=== PATIENT | female | born 1970 | race Caucasian/White ===

== ENCOUNTER 2018-08-27 17:18 | Inpatient (IN) | payer BC, OTHER ==
[~2018-08-27] VITALS: Ht 165.1 cm; Wt 83.5 kg
[2018-08-27] MEDS ORDERED: Morphine Sulfate 4mg/ml Inj (IV/IM USE ONLY) IVP ONE (17:45)
[2018-08-27 18:51] LABS: APPEARANCE,URINE CLEAR; BILIRUBIN, URINE NEGATIVE (NEGATIVE); COLOR,URINE PALE YELLOW; GLUCOSE, URINE (UA) NEGATIVE (NEGATIVE); HEMATOCRIT 35.5 % (37.0-47.0); HEMOGLOBIN 12.6 G/DL (12.0-16.0); KETONES,URINE NEGATIVE (NEGATIVE); LEUKOCYTE ESTERASE ,URINE NEGATIVE (NEGATIVE); MEAN CORPUSCULAR VOLUME 91 FL (80-99); NITRITE,URINE NEGATIVE (NEGATIVE); PH,URINE 5 (4.5-8.0); PLATELET COUNT 224 K/UL (150-450); PROTEIN,URINE NEGATIVE (NEGATIVE); RED CELL DISTRIBUTION WIDTH 10.4 % (11.6-14.8); UROBILINOGEN,URINE NORMAL MG/DL (0.0-1.0); WHITE BLOOD COUNT 3.5 K/UL (4.8-10.8)
[2018-08-27 18:56] VITALS: BP 145/95
[2018-08-27 19:02] LABS: ANION GAP 10 mmol/L (5-15); BLOOD UREA NITROGEN 13 mg/dL (7-18); CALCIUM 9.2 MG/DL (8.5-10.1); CARBON DIOXIDE 29 MMOL/L (21-32); CHLORIDE 102 MMOL/L (98-107); CREATININE 1.2 MG/DL (0.55-1.30); POTASSIUM 2.9 MMOL/L (3.5-5.1); SODIUM 141 MMOL/L (136-145)
[2018-08-27 19:18] LABS: ALANINE AMINOTRANSFERASE 52 U/L (12-78); ALBUMIN 4.1 G/DL (3.4-5.0); ALBUMIN/GLOBULIN RATIO 1.1 (1.0-2.7); ALKALINE PHOSPHATASE 83 U/L (46-116); ASPARTATE AMINO TRANSFERASE 33 U/L (15-37); BILIRUBIN,TOTAL 0.6 MG/DL (0.2-1.0)
[2018-08-27 19:30] VITALS: BP 145/95
[2018-08-27 20:00] VITALS: BP 135/85
[2018-08-27] MEDS ORDERED: METHOCARBAMOL500 MG ORAL (20:41)
[2018-08-27] MEDS ORDERED: ZYRTEC10 M3 ORAL (20:41)
[2018-08-27] MEDS ORDERED: TOPAMAX25 M1 ORAL (20:41)
[2018-08-27] MEDS ORDERED: BENADRYL25 M3 PO (20:41)
[2018-08-27] MEDS ORDERED: ZOFRAN4 M1 ORAL (20:41)
[2018-08-27] MEDS ORDERED: PRILOSEC OTC20 MG ORAL (20:41)
[2018-08-27] MEDS ORDERED: BUTRANS1 EAC1 TD (20:41)
--- NOTE | 2018-08-27 20:45 | Emergency Room Report ---
History of Present Illness General Chief Complaint: Abdominal Pain Source: Patient Present Illness HPI 48-year-old female patient presents ER complaining of abdominal pain for the past few days. Patient reports that she was sent to the ER by her physician, Dr. Hendrix. .Ruma called ahead to the ER to alert us that patient was being sent in for partial SBO. Patient complaining of nausea and abdominal pain at this time. Has not taken any medications for relief of symptoms. Reports had surgery to remove a portion of colon in 2008, states has a "internal ostomy " that she uses a catheter to evacuate her bowels several times a day. Denies fever, chest pain, shortness of breath. Allergies: Coded Allergies: SULFA (SULFONAMIDE ANTIBIOTICS) (Verified Allergy, Mild, HIVES, 07/30/10) Patient History Past Medical History: see triage record Now: No Reviewed Nursing Documentation: PMH: Agreed; PSxH: Agreed Review of Systems All Other Systems: negative except mentioned in HPI Physical Exam Vital Signs Date Time Temp Pulse Resp B/P (MAP) Pulse Ox O2 Delivery O2 Flow Rate FiO2 08/27/18 17:26 98.6 72 20 149/99 100 Room Air Sp02 EP Interpretation: reviewed, normal General Appearance: well appearing, no apparent distress, alert, GCS 15, non- toxic Head: normocephalic, atraumatic Eyes: bilateral eye normal inspection, bilateral eye PERRL ENT: hearing grossly normal, normal pharynx, no angioedema, normal voice, uvula midline, moist mucus membranes Neck: full range of motion Respiratory: lungs clear, normal breath sounds, no rhonchi, no respiratory distress, no accessory muscle use, no wheezing, speaking full sentences Cardiovascular #1: regular rate, rhythm, no edema Gastrointestinal: soft, no mass, non-distended, no rebound, guarding, tenderness - LLQ, LUQ Genitourinary: no CVA tenderness Musculoskeletal: back normal, digits/nails normal, gait/station normal, normal range of motion, non-tender Neurologic: alert, oriented x3, responsive, motor strength/tone normal, sensory intact Psychiatric: mood/affect normal Skin: no rash Medical Decision Making PA Attestation Dr. Tyson is my supervising Physician whom patient management has been discussed with. Diagnostic Impression: Primary Impression: Partial small bowel obstruction Additional Impression: Hypokalemia ER Course Pt. presents to the ED c/o abdominal pain and nausea. Ddx considered but are not limited to SBO, diverticulitis, stoma complications. Begin abdominal pain workup. Provided patient with pain medication. Vital signs: are WNL, pt. is afebrile ORDERS: CBC, CMP, Lipase, UA, PT/PTT/INR, Zofran, and medication. ER COURSE: Spoke with Dr. Cevallos on the phone, patients physician that sent her to the ER. Wants patient admitted to him, requesting labs be ordered, states does not need CT ordered, CT abdomen done previously few days ago showing partial small bowel obstruction. CBC and CMP shows no elevation in WBCs or LFTs, potassium decreased to 2.9, alerted by nurse of potassium levels, patient already transferred upstairs at that time. PT/PTT/INR WNL Lipase not elevated UA negative Discuss results with patient Provided patient with morphine for pain. Discuss patient with Dr. Tyson, states she had been informed by him that patient was being sent to the ER. Patient admitted to Dr. Cevallos for partial SBO. - Please note that this Emergency Department Report was dictated using [employer] grain dryer technology software, occasionally this can lead to erroneous entry secondary to interpretation by the dictation equipment. Labs Test 08/27/18 18:36 White Blood Count 3.5 K/UL (4.8-10.8) Red Blood Count 3.90 M/UL (4.20-5.40) Hemoglobin 12.6 G/DL (12.0-16.0) Hematocrit 35.5 % (37.0-47.0) Mean Corpuscular Volume 91 FL (80-99) Mean Corpuscular Hemoglobin 32.2 PG (27.0-31.0) Mean Corpuscular Hemoglobin Concent 35.4 G/DL (32.0-36.0) Red Cell Distribution Width 10.4 % (11.6-14.8) Platelet Count 224 K/UL (150-450) Mean Platelet Volume 7.3 FL (6.5-10.1) Neutrophils (%) (Auto) % (45.0-75.0) Lymphocytes (%) (Auto) % (20.0-45.0) Monocytes (%) (Auto) % (1.0-10.0) Eosinophils (%) (Auto) % (0.0-3.0) Basophils (%) (Auto) % (0.0-2.0) Differential Total Cells Counted 100 Neutrophils % (Manual) 31 % (45-75) Lymphocytes % (Manual) 59 % (20-45) Monocytes % (Manual) 6 % (1-10) Eosinophils % (Manual) 2 % (0-3) Basophils % (Manual) 1 % (0-2) Band Neutrophils 1 % (0-8) Platelet Estimate Adequate Platelet Morphology Normal Red Blood Cell Morphology Normal Prothrombin Time 10.6 SEC (9.30-11.50) Prothromb Time International Ratio 1.0 (0.9-1.1) Activated Partial Thromboplast Time 25 SEC (23-33) Urine Color Pale yellow Urine Appearance Clear Urine pH 5 (4.5-8.0) Urine Specific [place] 1.010 (1.005-1.035) Urine Protein Negative (NEGATIVE) Urine Glucose (UA) Negative (NEGATIVE) Urine Ketones Negative (NEGATIVE) Urine Blood Negative (NEGATIVE) Urine Nitrite Negative (NEGATIVE) Urine Bilirubin Negative (NEGATIVE) Urine Urobilinogen Normal MG/DL (0.0-1.0) Urine Leukocyte Esterase Negative (NEGATIVE) Sodium Level 141 MMOL/L (136-145) Potassium Level 2.9 MMOL/L (3.5-5.1) Chloride Level 102 MMOL/L (98-107) Carbon Dioxide Level 29 MMOL/L (21-32) Anion Gap 10 mmol/L (5-15) Blood Urea Nitrogen 13 mg/dL (7-18) Creatinine 1.2 MG/DL (0.55-1.30) Estimat Glomerular Filtration Rate 47.8 mL/min (>60) Glucose Level 103 MG/DL (74-106) Calcium Level 9.2 MG/DL (8.5-10.1) Total Bilirubin 0.6 MG/DL (0.2-1.0) Aspartate Amino Transf (AST/SGOT) 33 U/L (15-37) Alanine Aminotransferase (ALT/SGPT) 52 U/L (12-78) Alkaline Phosphatase 83 U/L (46-116) Total Protein 7.8 G/DL (6.4-8.2) Albumin 4.1 G/DL (3.4-5.0) Globulin 3.7 g/dL Albumin/Globulin Ratio 1.1 (1.0-2.7) Lipase 89 U/L (73-393) Last Vital Signs Date Time Temp Pulse Resp B/P (MAP) Pulse Ox O2 Delivery O2 Flow Rate FiO2 08/27/18 18:56 70 18 Room Air 08/27/18 18:56 98.7 145/95 100 Disposition: ADMITTED INPATIENT Condition: Serious Referrals: NON PHYSICIAN (PCP) Dex Kat Aug 27, 2018 20:45
[2018-08-27] MEDS ORDERED: LORazepam 0.5mg tab SL PRN (22:15)
[2018-08-27] MEDS: Methocarbamol 500mg tab ORAL SCH (22:57)
[2018-08-27] MEDS: D5 1/2NS w/KCl 20mEq 1,000 ML IV SCH (22:57)
[2018-08-27] MEDS ORDERED: Topiramate 25mg tab ORAL SCH (23:00)
[2018-08-27] MEDS: Topiramate 25mg tab ORAL SCH (23:39)
[2018-08-28] VITALS: BP 143/93
[2018-08-28] MEDS: Morphine Sulfate 2mg/ml Inj IVP PRN ×4 (02:16→19:49)
[2018-08-28 04:30] VITALS: BP 112/77
[2018-08-28 05:49] LABS: HEMOGLOBIN 12.4 G/DL (12.0-16.0); MEAN CORPUSCULAR VOLUME 90 FL (80-99); PLATELET COUNT 180 K/UL (150-450); RED BLOOD COUNT 3.79 M/UL (4.20-5.40); RED CELL DISTRIBUTION WIDTH 10.6 % (11.6-14.8); WHITE BLOOD COUNT 3.3 K/UL (4.8-10.8)
[2018-08-28] MEDS: D5 1/2NS w/KCl 20mEq 1,000 ML IV SCH (06:07)
[2018-08-28 06:12] LABS: ALANINE AMINOTRANSFERASE 50 U/L (12-78); ALBUMIN 3.5 G/DL (3.4-5.0); ALBUMIN/GLOBULIN RATIO 0.9 (1.0-2.7); ALKALINE PHOSPHATASE 73 U/L (46-116); ANION GAP 6 mmol/L (5-15); ASPARTATE AMINO TRANSFERASE 32 U/L (15-37); BILIRUBIN,TOTAL 0.5 MG/DL (0.2-1.0); BLOOD UREA NITROGEN 12 mg/dL (7-18); CALCIUM 8.8 MG/DL (8.5-10.1); CARBON DIOXIDE 28 MMOL/L (21-32); CHLORIDE 107 MMOL/L (98-107); CREATININE 1.1 MG/DL (0.55-1.30); SODIUM 141 MMOL/L (136-145)
[2018-08-28 08:00] VITALS: BP 109/77
--- NOTE | 2018-08-28 09:31 | General Progress Note ---
Progress Note Progress Note H&P dictated. Patient with history of total colectomy for colonic inertia with Ann Continent Ileostomy since 2006, and prior episode SBO requiring surgery. Now with persistent abdominal pain and bloating, increased by eating, with nausea and decreased output from Ann pouch. CT scan at home ([place] ) reviewed here with Radiology - partial small bowel obstruction. Also having increasing difficulty inserting her catheter into the Ann Pouch to evacuate stool - requires a lot of manipulation Patient admitted from ED - to be npo, IV fluids, prepare for surgery AVSS Abdomen mildly distended, soft, stoma low in RLQ - small but not stenotic I was able to insert 28Foley fairly readily into the pouch Labs: WBC 3300 (she states this is chronic) Segs 31 Lymph 59 Hgb 12.4 Platelets 180,000 Na 141 K 2.9 BUN12 Cr 1.1 Albumin 3.5 Patient using Butran 15mcg/hr patch for back pain (hx of RA and osteoarthritis with back fusion and other procedures Imp: Partial SBO - likely due to adhesions (see outside CT on PACS here and reviewed with radiology) Malfunctioning Ann Continent Ileostomy with difficulty intubating Chronic pain syndrome from spine disease S/P proctocolectomy S/P MICHAEL and BSO Plan: NPO PICC line and TPN Continuous drainage of Ann Pouch Pouch endoscopy surgery f/u labs after fully hydrated Linwood Hendrix MD Aug 28, 2018 09:31
[2018-08-28] MEDS: Topiramate 25mg tab ORAL SCH ×2 (09:32→20:03)
[2018-08-28] MEDS: Methocarbamol 500mg tab ORAL SCH ×2 (09:33→18:16)
[2018-08-28] MEDS: Pantoprazole Inj IVP SCH (09:36)
[2018-08-28] MEDS: D5 1/4NS w/KCl 20mEq 1,000 ML IV SCH ×2 (10:00→18:16)
[2018-08-28] MEDS ORDERED: BUPRENORPHINE TRANSDERMAL ORAL SCH (10:30)
[2018-08-28 12:00] VITALS: BP 129/85
--- NOTE | 2018-08-28 14:16 | Pre-op HX & Phy Repo 2 SIG ---
DATE OF ADMISSION: 08/27/2018 HISTORY OF PRESENT ILLNESS: The patient is a 48-year-old female in overall stable health, who presents with a persistent partial small bowel obstruction causing multiple abdominal and GI symptoms and significant weight loss as well as a malfunctioning Ann continent intestinal reservoir with difficulty intubating her pouch to evacuate stool and gas. The patient has an original underlying diagnosis of colonic inertia and underwent surgery in [place] in 2005 for abdominal colectomy with ileorectostomy. One month later the anastomosis was resected because of stricture and a low anterior anastomosis was performed with diverting loop ileostomy. She had recurrent stricture of the new anastomosis and underwent surgery in [place] by vt in 2006 to take down the failed prior procedure and create a Ann continent ileostomy. She subsequently underwent total abdominal hysterectomy with bilateral salpingo-oophorectomy and abdomino-perineal proctectomy in 2007 and had surgery in 2009 to revise the access segment and stoma of the Ann continent ileostomy. The patient required laparotomy with lysis of adhesions for obstruction in 2006. In 2016, the patient had symptoms of bloating, early satiety, grumbling that was evaluated and gradually resolved. In the past several months, she states she has lost 20 pounds because whenever she eats she has abdominal pain, feels very full, and has severe nausea without emesis. She must manipulate her catheter to intubate her continent ileostomy pouch and even when the catheter gets into the pouch, it does not empty well without her straining a great deal. She does not have symptoms of pouchitis. The patient's usual weight is between 155 and 160 pounds. Currently, her weight is [address] scan near her home, which was reviewed by me with the radiologist revealing findings consistent with partial small bowel obstruction in the mid small bowel well proximal to the continent ileostomy pouch. The patient presented to the emergency room with the above complaints and obviously required admission to become NPO at this time. PAST MEDICAL HISTORY/MEDICATIONS: Robaxin, Topamax, omeprazole, Butrans 15 mcg/hour patch change once weekly for chronic pain syndrome due to spine disease. ALLERGIES TO MEDICATIONS: Sulfa. She has had headaches from Toradol at times OPERATIONS: In addition to the above, tonsillectomy in November 2009, section x4, repair of ventral incisional hernia in 2005 and 2009, benign breast lumpectomy, ORIF right ankle fracture, lumbar diskectomies and spinal fusion 2013 with removal of hardware in 2015. REVIEW OF SYSTEMS: Rheumatoid arthritis and degenerative osteoarthritis with the past history of six bulging disks in her spine. PHYSICAL EXAMINATION: VITAL SIGNS: The patient is 5 feet 5 inches, approximately 138 pounds. Vital signs are within normal limits. HEENT: Within normal limits. LUNGS: Clear. HEART: Regular rhythm. BREASTS: Without masses. ABDOMEN: Mildly distended, but soft. There is a long midline scar. The stoma of the Ann continent ileostomy is small, but not stenotic and is low in the right lower quadrant. There is no evidence of recurrent incisional or any parastomal hernia. PELVIC: Status post hysterectomy. RECTAL: Status post proctectomy. EXTREMITIES: Without edema. Pulses 2+ femoral to pedal bilaterally. NEUROLOGIC: Physiologic. LABORATORY DATA: The patient presents with white blood cell count of 3300 with 31 segs and 59 lymphocytes, hemoglobin 12.4 before adequate hydration, platelet count 180,000. She states she chronically has low white blood cell counts, but was not sure of the differential. Sodium 141, potassium 2.9, albumin 3.5 again prior to adequate hydration. IMPRESSION: 1. Persistent partial small bowel obstruction. 2. Malfunctioning Ann continent intestinal reservoir. 3. History of colonic inertia. 4. History of rheumatoid arthritis and degenerative osteoarthritis with multiple bulging disks, status post spinal fusion 2013. 5. STATUS POST MULTIPLE ABDOMINAL OPERATIONS: 5.1. section x4. 5.2. Total abdominal colectomy with ileorectostomy June 2006. 5.3. Low anterior resection of anastomotic stricture with re-anastomosis and diverting loop ileostomy July 2006. 5.4. Repair of ventral incisional hernia in September 2006, (these operations were done in [place]). 5.5. Ann continent intestinal reservoir with takedown of prior loop ileostomy and small bowel resection January 2007. 5.6. Extensive lysis of adhesions for obstruction and bilateral ovarian cystectomy July 2007. 5.7. Total abdominal hysterectomy and bilateral salpingo-oophorectomy and abdomino-perineal proctectomy December 2007. 5.8. Laparotomy with revision of Ann continent intestinal reservoir access segment and stoma and repair of recurrent incisional hernia July 2010 PLAN: The patient will be admitted and be maintained NPO except for po medications with sips of water as tolerated. If emesis develops, she will require nasogastric tube to suction. The patient will have followup laboratory studies to assess baseline values when she is adequately hydrated. A dual lumen PICC line will be placed and she will be started on TPN. A Ann pouch endoscopy will be performed and then decision made regarding proceeding with surgery to relieve the chronic partial obstruction and to revise the Ann pouch as indicated by the endoscopy findings. The patient also states that she is having difficulty voiding for quite some time and she may need to undergo cystogram. A strict intake and output will be maintained. I inserted a 28-Latvian Will catheter into the patient's pouch with some manipulation, I confirmed placement with irrigation and secured it to the skin with tape, placed a dressing over the stoma and connected to gravity drainage bag. This catheter will be flushed by the nursing staff every three hours to maintain patency and strict intake and output will be maintained with vital signs every four hours. The Butrans patch will be continued for her chronic pain syndrome. Linwood Hendrix M.D. DR: LAKE JOB#: [id number] CC: RENE
[2018-08-28] MEDS ORDERED: LORazepam 1mg tab SL SCH (15:15)
[2018-08-28 16:00] VITALS: BP 118/79
[2018-08-28] MEDS ORDERED: LORazepam 1mg tab SL PRN (19:15)
[2018-08-28 20:00] VITALS: BP 117/81
[2018-08-29] VITALS (7 sets, daily range): BP systolic 104–140; BP diastolic 63–88
[2018-08-29] MEDS: Morphine Sulfate 2mg/ml Inj IVP PRN ×4 (00:16→20:00)
[2018-08-29] MEDS: D5 1/4NS w/KCl 20mEq 1,000 ML IV SCH ×3 (02:05→17:49)
[2018-08-29 05:54] LABS: HEMATOCRIT 36.5 % (37.0-47.0); HEMOGLOBIN 12.8 G/DL (12.0-16.0); MEAN CORPUSCULAR VOLUME 90 FL (80-99); PLATELET COUNT 167 K/UL (150-450); RED BLOOD COUNT 4.04 M/UL (4.20-5.40); RED CELL DISTRIBUTION WIDTH 10.6 % (11.6-14.8); WHITE BLOOD COUNT 2.3 K/UL (4.8-10.8)
[2018-08-29 06:35] LABS: ALANINE AMINOTRANSFERASE 50 U/L (12-78); ALBUMIN 3.6 G/DL (3.4-5.0); ALBUMIN/GLOBULIN RATIO 0.9 (1.0-2.7); ALKALINE PHOSPHATASE 78 U/L (46-116); ANION GAP 10 mmol/L (5-15); ASPARTATE AMINO TRANSFERASE 24 U/L (15-37); BILIRUBIN,TOTAL 0.8 MG/DL (0.2-1.0); BLOOD UREA NITROGEN 5 mg/dL (7-18); CALCIUM 9.2 MG/DL (8.5-10.1); CARBON DIOXIDE 24 MMOL/L (21-32); CHLORIDE 106 MMOL/L (98-107); CREATININE 1.2 MG/DL (0.55-1.30); FERRITIN 115 NG/ML (8-388); SODIUM 140 MMOL/L (136-145)
[2018-08-29 06:49] LABS: % IRON SATURATION 7 % (15-50); IRON 25 ug/dL (50-175); TOTAL IRON BINDING CAPACITY 340 ug/dL (250-450)
[2018-08-29] MEDS ORDERED: [UNRECOGNIZED DRUG - OTHER] MISC SCH (09:00)
[2018-08-29] MEDS: Topiramate 25mg tab ORAL SCH ×2 (10:02→20:00)
[2018-08-29] MEDS: Methocarbamol 500mg tab ORAL SCH ×2 (10:02→17:49)
[2018-08-29] MEDS: Pantoprazole Inj IVP SCH (10:02)
--- NOTE | 2018-08-29 10:26 | General Progress Note ---
Progress Note Progress Note AVSS Still having intermittent sharp and cramping abdominal pain despite npo and indwelling catheter to [place] continent ileostomy patch. Abdomen soft with mild upper abdominal distention, non-tender Urine 2350 BCIR ileo 340 WBC down 2300 Hgb 12.8 Platelets 167,000 K 4.0 BUN 5 Cr 1.2 Albumin 3.6 Iron 25 Ferritin 115 B12 and folate - wnl Imp. partial SBO severe iron deficiency Plan; NPO Venofer f/u labs re low WBC (chronic issue for patient) for AM: Gastrograffin continent ileostomy pouchogram and retrograde small bowel series [place] Pouch endoscopy insertion PIC line - prepare for surgery laparotomy Linwood Hendrix MD Aug 29, 2018 10:26
[2018-08-29] MEDS: Iron Sucrose 100 MG in NS 55 ML IV SCH (20:00)
[2018-08-30] VITALS: BP 144/104
[2018-08-30] MEDS: Morphine Sulfate 2mg/ml Inj IVP PRN ×4 (00:28→19:31)
[2018-08-30] MEDS: D5 1/4NS w/KCl 20mEq 1,000 ML IV SCH ×3 (00:28→17:58)
[2018-08-30 04:00] VITALS: BP 112/72
[2018-08-30 05:53] LABS: BASOPHILS % (AUTO) 0.9 % (0.0-2.0); EOSINOPHILS % (AUTO) 2.3 % (0.0-3.0); HEMOGLOBIN 11.4 G/DL (12.0-16.0); LYMPHOCYTES % (AUTO) 30.9 % (20.0-45.0); MEAN CORPUSCULAR VOLUME 91 FL (80-99); MONOCYTES % (AUTO) 12.2 % (1.0-10.0); NEUTROPHILS % (AUTO) 53.6 % (45.0-75.0); PLATELET COUNT 152 K/UL (150-450); RED BLOOD COUNT 3.62 M/UL (4.20-5.40); RED CELL DISTRIBUTION WIDTH 10.5 % (11.6-14.8); WHITE BLOOD COUNT 3.6 K/UL (4.8-10.8)
[2018-08-30 05:57] LABS: ANION GAP 11 mmol/L (5-15); BLOOD UREA NITROGEN 4 mg/dL (7-18); CALCIUM 9.3 MG/DL (8.5-10.1); CARBON DIOXIDE 23 MMOL/L (21-32); CHLORIDE 110 MMOL/L (98-107); CREATININE 1.1 MG/DL (0.55-1.30); POTASSIUM 3.4 MMOL/L (3.5-5.1); SODIUM 144 MMOL/L (136-145)
[2018-08-30 08:00] VITALS: BP 133/82
[2018-08-30] MEDS: Pantoprazole Inj IVP SCH (08:21)
[2018-08-30] MEDS: Topiramate 25mg tab ORAL SCH ×2 (08:21→20:25)
[2018-08-30] MEDS: Methocarbamol 500mg tab ORAL SCH ×2 (08:22→17:57)
[2018-08-30] MEDS ORDERED: Heparin 2000 units/Ns 1000ml INJ PRN (08:30)
[2018-08-30] MEDS ORDERED: Lidocaine 1% Plain 30 ml INJ PRN (08:30)
--- NOTE | 2018-08-30 08:59 | General Progress Note ---
Progress Note Progress Note AVSS Persistent abd. pain Abdomen soft, non-tender Urine 2550 BCIR ileo 205 WBC up 3600 other labs ok Imp. Partial SBO Malfunctioning Ann Pouch with difficulty with intubation Plan: Gastrograffin pouchogram with retrograde SBS PIC line Ann Pouch endoscopy Start TPN Surgery tomorrow Linwood Hendrix MD Aug 30, 2018 08:59
--- NOTE | 2018-08-30 09:22 | Pre-Procedure Note/Attestation ---
Pre-Procedure Note/Attestation Complete Prior to Procedure Planned Procedure: not applicable Procedure Narrative: Ann Pouch endoscopy Indications for Procedure Pre-Operative Diagnosis: malfunctioning Ann Pouch continent ileostomy Attestation I attest that I discussed the nature of the procedure; its benefits; risks and complications; and alternatives (and the risks and benefits of such alternatives ), prior to the procedure, with the patient (or the patient's legal access representative). I attest that, if there was a reasonable possibility of needing a blood transfusion, the patient (or the patient's legal access representative) was given the [facility] standardized written summary, pursuant to the [place] Nicole Blood Safety Act ([place] Health and Safety Code # 1645, as amended). I attest that I re-evaluated the patient just prior to the surgery and that there has been no change in the patient's H&P, except as documented below:none Linwood Hendrix MD Aug 30, 2018 09:22
--- NOTE | 2018-08-30 10:33 | Brief Operative Note ---
Immediate Post Operative Note Operative Note Pre-op Diagnosis: bowel obstruction Procedure: PICC Post-op Diagnosis: same as pre-op Surgeon: Nohelia MARTELL Anesthesia: local Specimen: none Complications: none Condition: stable Fluids: none Implant(s) used?: No Jose Armando Martell MD Aug 30, 2018 10:33
--- NOTE | 2018-08-30 10:33 | Pre-Procedure Note/Attestation ---
Pre-Procedure Note/Attestation Complete Prior to Procedure Planned Procedure: not applicable Procedure Narrative: PICC Indications for Procedure Pre-Operative Diagnosis: bowel obstruction Attestation I attest that I discussed the nature of the procedure; its benefits; risks and complications; and alternatives (and the risks and benefits of such alternatives ), prior to the procedure, with the patient (or the patient's legal accounting representative). I attest that, if there was a reasonable possibility of needing a blood transfusion, the patient (or the patient's legal accounting representative) was given the [facility] standardized written summary, pursuant to the Tiago Nicole Blood Safety Act ([place] Health and Safety Code # 1645, as amended). I attest that I re-evaluated the patient just prior to the surgery and that there has been no change in the patient's H&P, except as documented below: Jose Armando Martell MD Aug 30, 2018 10:33
--- NOTE | 2018-08-30 11:42 | Diagnostic Imaging Report ---
Indications: Needs long-term IV access Technique: Ultrasound confirms patent compressible left basilic vein. Total sterile technique, including sterile probe cover and sterile gel, hat, mask, sterile gown, large sterile drape, and preparation with 2% chlorhexidine utilized. Local anesthesia with 1% lidocaine. Under real-time ultrasound guidance, puncture basilic vein using 21-gauge needle, documented and archived, passage 0.018 guidewire under direct fluoroscopy, which was used to determine appropriate catheter length, exchange for 5 [place] peel-away sheath. 5 [place] Bard dual-lumen power PICC cut to 46 cm. It was inserted through the peel-away sheath. Peel-away sheath and guidewire removed. Catheter fixed to the skin. Both catheter ports aspirated and flushed. Patient tolerated procedure well, without immediate complication. Digital radiograph documents satisfactory catheter tip position, at the cavoatrial junction. Total fluoroscopy time 0.3 minutes. Total dose area product 6.2 dGycm2 Total number of images: 1 Impression: Successful placement of left arm PICC under sonographic and fluoroscopic guidance, as described above.
[2018-08-30 12:00] VITALS: BP 129/90
--- NOTE | 2018-08-30 13:59 | Brief Operative Note ---
Immediate Post Operative Note Operative Note Pre-op Diagnosis: malfunctioning Ann Pouch continent ileostomy Procedure: Ann continent ileostomy pouch endoscopy Post-op Diagnosis: redundant angulated access segment. Normal pouch and valve Post-op Diagnosis: same as pre-op Findings: consistent w/pre-op dx studies Surgeon: thai Anesthesiologist: jenise Anesthesia: other - none Specimen: none Complications: none Condition: stable Fluids: none Estimated Blood Loss: none Drains: other - 26 Will to BCIR Implant(s) used?: No Linwood Hendrix MD Aug 30, 2018 13:59
--- NOTE | 2018-08-30 15:49 | Diagnostic Imaging Report ---
Indication: Abdominal pain Technique: Via gravity, water-soluble contrast instilled into continent ileostomy pouch using pre-existing Will catheter. Serial spot images were obtained. Subsequent overhead images likewise obtained. Total fluoroscopy time 4.3 minutes. Total dose area product 366 dGycm2 Number of images: 34 Comparison: none Findings: Contrast fills continent ileostomy reservoir, appearance of which is unremarkable. There is free reflux of contrast into the small bowel, and contrast in fact refluxes all the way into the stomach. The most proximal jejunal loops are mildly dilated. However, no resistance to retrograde propagation of contrast is demonstrated. Delayed images demonstrate partial emptying of the small bowel, with normal caliber of the proximal jejunum. It also demonstrates complete emptying of the pouch. Very delayed images taken one half hours after completion of the main portion of the exam demonstrate nearly complete evacuation of the small bowel with only a small amount of residual contrast within the pouch in the distal small bowel. The delayed images do demonstrate a single very mildly dilated gas-filled jejunal loop in the left upper pelvis Impression: Nonspecific mild distention of the proximal jejunum, with out evidence of mechanical obstruction Unremarkable appearing continent ileostomy, as described Images previously reviewed in person with Dr. Hendrix.
[2018-08-30 16:00] VITALS: BP 132/94
[2018-08-30] MEDS ORDERED: BUPRENORPHINE TRANSDERMAL ORAL SCH (16:30)
[2018-08-30] MEDS: Potassium Chloride 40 MEQ in D5 1/4NS 1000ml 1,000 ML IV SCH (19:56)
[2018-08-30] MEDS: FAT EMULSION 20% IV SCH (19:57)
[2018-08-30] MEDS: TPN IV SCH (19:57)
[2018-08-30 20:00] VITALS: BP 126/94
[2018-08-30] MEDS ORDERED: Dextrose 10% 1,000 ML IV PRN (20:00)
[2018-08-30] MEDS: Dyna-Hex 2% Top Sol 2oz TOPIC SCH (20:11)
[2018-08-30] MEDS: Iron Sucrose 100 MG in NS 55 ML IV SCH (20:24)
[2018-08-30] MEDS ORDERED: Fat Emulsion Iv 20% 250 ML IV SCH (21:00)
--- NOTE | 2018-08-30 21:16 | Procedure Note ---
DATE OF PROCEDURE: 08/30/2018 ENDOSCOPY PROCEDURE REPORT ENDOSCOPIST: Linwood Hendrix M.D. ANESTHESIA: None. SEDATION: None. PRE-ENDOSCOPY DIAGNOSES: 1. Malfunctioning Ann continent ileostomy with difficulty with intubation. 2. History of proctocolectomy and continent ileostomy. POST-ENDOSCOPY DIAGNOSES: 1. Malfunctioning Ann continent ileostomy with difficulty with intubation. 2. History of proctocolectomy and continent ileostomy. ENDOSCOPY PERFORMED: Ann continent ileostomy pouch endoscopy. FINDINGS: A redundant and angulated access segment with normal pouch and well-formed nipple valve. DESCRIPTION OF PROCEDURE: The patient was positioned supine in the GI lab without any anesthesia or sedation given or required. I initially irrigated the indwelling Will catheter in her pouch and the contents were clear. Using a GIF-P140 endoscope, the stoma was entered and angulation negotiated. The distance to the tip of the nipple valve was 11 cm, which in this patient should be 7 or 8 cm. The pouch was distensible and the mucosa normal. Retroflexed views revealed a fairly well-formed nipple valve. One round object was identified either undigested food or undigested pill, but no others were seen. Withdrawal views confirmed the above findings. After removing the endoscope, I was not able to insert a 28-Syriac Will, but was able to insert a 26-Syriac Will into the pouch and secured it to the skin with tape, connected it to a gravity drainage bag, and put a gauze dressing over the stoma. The patient will require surgical revision. The patient tolerated the endoscopy well. Linwood Hendrix M.D. DR: [place] JOB#: [id number] CC: RENE
[2018-08-30] MEDS: NovoLOG Insulin Flexpen SUBQ SCH (23:59)
[2018-08-31] VITALS (7 sets, daily range): BP systolic 101–130; BP diastolic 71–92
[2018-08-31] MEDS: Morphine Sulfate 2mg/ml Inj IVP PRN ×2 (00:05→05:59)
[2018-08-31 04:32] LABS: HEMATOCRIT 35.1 % (37.0-47.0); HEMOGLOBIN 12.2 G/DL (12.0-16.0); MEAN CORPUSCULAR VOLUME 90 FL (80-99); PLATELET COUNT 156 K/UL (150-450); RED CELL DISTRIBUTION WIDTH 10.4 % (11.6-14.8); WHITE BLOOD COUNT 3.4 K/UL (4.8-10.8)
[2018-08-31 04:49] LABS: ANION GAP 9 mmol/L (5-15); BLOOD UREA NITROGEN 5 mg/dL (7-18); CARBON DIOXIDE 26 MMOL/L (21-32); CHLORIDE 109 MMOL/L (98-107); POTASSIUM 3.6 MMOL/L (3.5-5.1); SODIUM 143 MMOL/L (136-145)
[2018-08-31] MEDS: Ampicillin/Sulbactam Sod 3 GM in NS 110 ML IVPB SCH ×2 (05:12→11:37)
[2018-08-31] MEDS: NovoLOG Insulin Flexpen SUBQ SCH ×3 (06:00→19:07)
--- NOTE | 2018-08-31 07:56 | General Progress Note ---
Progress Note Progress Note AVSS Stable for surgery today - laparotomy with revision Ann Continent Ileostomy and release partial small bowel obstruction; possible gastrostomy Full discussion regarding the surgery, indications, alternatives and risks ( bleeding, infection, injury to adjacent structures or organs, continued issues with the BCIR or abdominal pain, etc). All questions answered. WBC 3400 Platelets 156,000 To receive Flagyl and Unasyn IV pre-op; heparin SQ x 1 Linwood Hendrix MD Aug 31, 2018 07:56
--- NOTE | 2018-08-31 07:58 | Pre-Procedure Note/Attestation ---
Pre-Procedure Note/Attestation Complete Prior to Procedure Planned Procedure: not applicable Procedure Narrative: laparotomy revision Ann Continent Ileostomy, release partial small bowel obstruction, possible gastrostomy Indications for Procedure Pre-Operative Diagnosis: malfunctioning Ann Pouch continent ileostomy; partial small bowel obstruction Attestation I attest that I discussed the nature of the procedure; its benefits; risks and complications; and alternatives (and the risks and benefits of such alternatives ), prior to the procedure, with the patient (or the patient's legal loss prevention representative). I attest that, if there was a reasonable possibility of needing a blood transfusion, the patient (or the patient's legal loss prevention representative) was given the [place] [employer] [facility] standardized written summary, pursuant to the [place] Blood Safety Act ([place] Health and Safety Code # 1645, as amended). I attest that I re-evaluated the patient just prior to the surgery and that there has been no change in the patient's H&P, except as documented below:none Linwood Hendrix MD Aug 31, 2018 07:58
[2018-08-31] MEDS: Pantoprazole Inj IVP SCH (08:27)
[2018-08-31] MEDS: Methocarbamol 500mg tab ORAL SCH ×2 (08:27→19:02)
[2018-08-31] MEDS: Topiramate 25mg tab ORAL SCH ×2 (08:28→20:35)
[2018-08-31] MEDS ORDERED: NS Irrig 1000ml ONE (10:00)
[2018-08-31] MEDS ORDERED: LR 1000ml ONE ×2 (10:00→14:00)
[2018-08-31] MEDS ORDERED: Sterile Water Irrig 1000ml IRRIG ONE (10:00)
[2018-08-31] MEDS ORDERED: Propofol 1,000mg/ 100ml btl IV ONE (10:00)
[2018-08-31] MEDS ORDERED: Heparin 5000 units/ml inj SUBQ SCH ×2 (11:00)
[2018-08-31] MEDS ORDERED: Bacitracin 50000 Units Vial ONE (13:11)
[2018-08-31] MEDS ORDERED: NeoSporin Gu Irrig 1ml Amp IRRIG ONE (13:11)
[2018-08-31] MEDS ORDERED: LR 1000ml 1,000 ML IVLG SCH (13:49)
--- NOTE | 2018-08-31 13:50 | Anethesia Preoperative Eval ---
Anesthesia Pre-op PMH/ROS General Date of Evaluation: Aug 31, 2018 Time of Evaluation: 14:01 Anesthesiologist: Jayshree ASA Score: ASA 3 Mallampati Score Class I : Soft palate, uvula, fauces, pillars visible Class II: Soft palate, uvula, fauces visible Class III: Soft palate, base of uvula visible Class IV: Only hard plate visible Mallampati Classification: Class II Surgeon: Ruma Diagnosis: Small Bowel Obstruction Surgical Procedure: Exploratory Laparotomy, Revision Ann Continent Ileostomy, Release SBO Anesthesia History: none Family History: no anesthesia problems Allergies: Coded Allergies: SULFA (SULFONAMIDE ANTIBIOTICS) (Verified Allergy, Mild, HIVES, 07/30/10) Medications: see eMAR Patient NPO?: Yes NPO Date: Aug 31, 2018 NPO Time: 0000 Past Medical History Gastrointestinal/Genitourinary: Reports: other - Colon CA Hematology/Immune: Reports: anemia, other - Raynauds Disease PSxH Narrative: 1. Persistent partial small bowel obstruction. 2. Malfunctioning Ann continent intestinal reservoir. 3. History of colonic inertia. 4. History of rheumatoid arthritis and degenerative osteoarthritis with multiple bulging disks, status post spinal fusion 2013. 5. STATUS POST MULTIPLE ABDOMINAL OPERATIONS: 5.1. section x4. 5.2. Total abdominal colectomy with ileorectostomy June 2006. 5.3. Low anterior resection of anastomotic stricture with re-anastomosis and diverting loop ileostomy July 2006. 5.4. Repair of ventral incisional hernia in September 2006, (these operations were done in [place]). 5.5. Ann continent intestinal reservoir with takedown of prior loop ileostomy and small bowel resection January 2007. 5.6. Extensive lysis of adhesions for obstruction and bilateral ovarian cystectomy July 2007. 5.7. Total abdominal hysterectomy and bilateral salpingo-oophorectomy and abdomino-perineal proctectomy December 2007. 5.8. Laparotomy with revision of Ann continent intestinal reservoir access segment and stoma and repair of recurrent incisional hernia July 2010 Lumpectomy Anesthesia Pre-op Phys. Exam Physician Exam Last Vital Signs Date Time Temp Pulse Resp B/P (MAP) Pulse Ox O2 Delivery O2 Flow Rate FiO2 08/31/18 08:00 98.2 74 20 130/92 (105) 98 08/30/18 21:00 Room Air Constitutional: NAD Neurologic: CN 2-12 intact Cardiovascular: RRR Respiratory: CTA Gastrointestinal: S/NT/ND Airway Exam Mallampati Score: Class II MO: full ROM: full Teeth: intact Anesthesia Pre-op A/P Labs Hematology Test 08/31/18 04:24 White Blood Count 3.4 K/UL (4.8-10.8) L Red Blood Count 3.90 M/UL (4.20-5.40) L Hemoglobin 12.2 G/DL (12.0-16.0) Hematocrit 35.1 % (37.0-47.0) L Mean Corpuscular Volume 90 FL (80-99) Mean Corpuscular Hemoglobin 31.4 PG (27.0-31.0) H Mean Corpuscular Hemoglobin Concent 34.8 G/DL (32.0-36.0) Red Cell Distribution Width 10.4 % (11.6-14.8) L Platelet Count 156 K/UL (150-450) Mean Platelet Volume 7.7 FL (6.5-10.1) Neutrophils (%) (Auto) % (45.0-75.0) Lymphocytes (%) (Auto) % (20.0-45.0) Monocytes (%) (Auto) % (1.0-10.0) Eosinophils (%) (Auto) % (0.0-3.0) Basophils (%) (Auto) % (0.0-2.0) Chemistry Test 08/31/18 04:24 Sodium Level 143 MMOL/L (136-145) Potassium Level 3.6 MMOL/L (3.5-5.1) Chloride Level 109 MMOL/L (98-107) H Carbon Dioxide Level 26 MMOL/L (21-32) Anion Gap 9 mmol/L (5-15) Blood Urea Nitrogen 5 mg/dL (7-18) L Creatinine 1.0 MG/DL (0.55-1.30) Estimat Glomerular Filtration Rate 58.9 mL/min (>60) Glucose Level 129 MG/DL (74-106) H Calcium Level 9.0 MG/DL (8.5-10.1) Risk Assessment & Plan Assessment: ASA 3 Plan: GA, GlideScope Go, SED Status Change Before Surgery: No Pre-Antibiotics Drug: On Floor Given Within 1 Hr of Incision: Yes Palmer Martell MD Aug 31, 2018 13:50
[2018-08-31] MEDS ORDERED: Zemuron 50mg/5ml Inj IV ONE (13:52)
[2018-08-31] MEDS ORDERED: Lidocaine 1% MPF 10mg/ml 5ml ONE (13:59)
[2018-08-31] MEDS ORDERED: Dexamethasone 4mg/ml vial ONE (13:59)
[2018-08-31] MEDS ORDERED: Sodium Chloride 10ml vial INJ ONE (13:59)
[2018-08-31] MEDS ORDERED: Norco 5mg/325mg tab ORAL PRN (14:00)
[2018-08-31] MEDS ORDERED: Hydromorphone 0.5mg/0.5ml inj IVP PRN (14:00)
[2018-08-31] MEDS ORDERED: Meperidine 50mg/ml Inj(FOR RIGORS ONLY) IVP PRN (14:00)
[2018-08-31] MEDS ORDERED: Ketorolac 30mg Inj IV PRN ×2 (14:00)
[2018-08-31] MEDS ORDERED: oxyCODONE HCL/Acetaminophen 5/325mg ORAL PRN (14:00)
[2018-08-31] MEDS ORDERED: LORazepam Inj 2mg/ml 1ml IV PRN (14:00)
[2018-08-31] MEDS ORDERED: Midazolam 2mg/2ml Inj IVP PRN (14:00)
[2018-08-31] MEDS ORDERED: HYDROcodone/Acetamin 7.5/325 tab ORAL PRN (14:00)
[2018-08-31] MEDS ORDERED: Atropine Sulfate 0.4mg/ml inj IVP PRN (14:00)
[2018-08-31] MEDS ORDERED: Acetaminophen (Non formulary) 100 ML IV ONE (14:00)
[2018-08-31] MEDS ORDERED: fentaNYL 100 mcg/2 mL IV PRN (14:00)
[2018-08-31] MEDS ORDERED: DiphenhydrAMINE 50mg/ml Inj IVP PRN ×2 (14:00→18:00)
[2018-08-31] MEDS ORDERED: Metoclopramide 10mg/2ml Inj IVP PRN (14:00)
[2018-08-31] MEDS ORDERED: Lidocaine 1% Plain 30 ml INJ ONE (14:08)
[2018-08-31] MEDS ORDERED: fentaNYL 100 mcg/2 mL IV ONE (14:10)
--- NOTE | 2018-08-31 14:52 | Immediate Post-Op Evaluation ---
Immediate Post-Op Evalulation Immediate Post-Op Evalulation Procedure: Exploratory Laparotomy, Revision Ann Continent Ileostomy, Release SBO Date of Evaluation: Aug 31, 2018 Time of Evaluation: 16:55 IV Fluids: 500 LR Blood Products: 0 Estimated Blood Loss: 75 Blood Pressure Systolic: 101 Blood Pressure Diastolic: 71 Pulse Rate: 72 Respiratory Rate: 16 O2 Sat by Pulse Oximetry: 100 Temperature (Fahrenheit): 97 Pain Score (1-10): 3 Nausea: No Vomiting: No Complications 0 Patient Status: awake, reacts, patent, extubated, none Hydration Status: adequate Drug: On Floor Given Within 1 Hr of Incision: Yes Palmer Martell MD Aug 31, 2018 14:52
[2018-08-31] MEDS ORDERED: Neostigmine 1mg/ml 10ml Inj ONE (16:12)
[2018-08-31] MEDS ORDERED: Glycopyrrolate 0.2mg/ml 1ml Vial ONE (16:12)
--- NOTE | 2018-08-31 16:48 | Brief Operative Note ---
Immediate Post Operative Note Operative Note Pre-op Diagnosis: malfunctioning Ann Pouch continent ileostomy; partial small bowel obstruction Procedure: laparotomy with extensive lysis of adhesions release partial small bowel obstruction; revision Ann Continent Ileostomy Post-op Diagnosis: malfunctioning Ann Continent Ileostomy and partial SBO Post-op Diagnosis: same as pre-op Findings: consistent w/pre-op dx studies Surgeon: thai Test Desk Trouble Locator: rocio Anesthesiologist: dallin Anesthesia: general Specimen: none Complications: none Condition: stable Fluids: see anesthesia record Estimated Blood Loss: minimal Drains: other - 28 Will to Ann pouch Implant(s) used?: No Linwood Hendrix MD Aug 31, 2018 16:48
[2018-08-31] MEDS ORDERED: Rate Change PCA 1 Each MISC PRN (18:00)
[2018-08-31] MEDS ORDERED: Naloxone 0.4mg/ml Inj IVP PRN (18:00)
[2018-08-31] MEDS ORDERED: PCA HYDROmorphone 1mg/ml 30 ML IV PRN ×2 (18:00→21:00)
[2018-08-31] MEDS: PCA shift volume MISC SCH (19:00)
[2018-08-31] MEDS: Ampicillin/Sulbactam Sod 3 GM in NS 110 ML IV SCH (19:01)
[2018-08-31] MEDS ORDERED: PCA Education Pamphlet MISC ONE (20:00)
[2018-08-31] MEDS: Potassium Chloride 40 MEQ in D5 1/4NS 1000ml 1,000 ML IV SCH (20:02)
[2018-08-31] MEDS: TPN IV SCH (20:04)
[2018-08-31] MEDS: FAT EMULSION 20% IV SCH (20:04)
[2018-08-31] MEDS: Dyna-Hex 2% Top Sol 2oz TOPIC SCH (20:35)
[2018-08-31] MEDS: Iron Sucrose 100 MG in NS 55 ML IV SCH (20:35)
[2018-08-31] MEDS ORDERED: [UNRECOGNIZED DRUG - OTHER] MISC SCH (21:15)
--- NOTE | 2018-08-31 21:31 | Operative Note - Dictated ---
DATE OF OPERATION: 08/31/2018 SURGEON: Linwood Hendrix M.D. ASSISTANCE SURGEON: Cheikh Laurent M.D. ANESTHESIOLOGIST: Palmer Martell M.D. TYPE OF ANESTHESIA: General endotracheal. PREOPERATIVE DIAGNOSES: 1. Malfunctioning Ann continent intestinal reservoir with difficulty with intubation. 2. Persistent partial small bowel obstruction. 3. History of colonic inertia. 4. Status post multiple abdominal operations. 4.1. section x4. 4.2. Total abdominal colectomy with ileorectostomy in June 2006. 4.3. Low anterior resection of anastomotic stricture with reanastomosis and diverting loop ileostomy in July 2006. 4.4. Repair of ventral incisional hernia in September 2006 (all of these operations were done in [place]). 5. Ann continent intestinal reservoir with takedown of prior loop ileostomy and small-bowel resection in January 2007. 6. Lysis of adhesions for obstruction and bilateral ovarian cystectomy in July 2007. 7. Total abdominal hysterectomy and bilateral salpingo-oophorectomy and abdomino-perineal proctectomy in December 2007. 8. Laparotomy with revision of Ann continent intestinal reservoir access segment and stoma and repair of recurrent incisional hernia in July 2010. POSTOPERATIVE DIAGNOSES: 1. Malfunctioning Ann continent intestinal reservoir with difficulty with intubation. 2. Persistent partial small bowel obstruction. 3. History of colonic inertia. 4. Status post multiple abdominal operations. 4.1. section x4. 4.2. Total abdominal colectomy with ileorectostomy in June 2006. 4.3. Low anterior resection of anastomotic stricture with reanastomosis and diverting loop ileostomy in July 2006. 4.4. Repair of ventral incisional hernia in September 2006 (all of these operations were done in [place]). 5. Ann continent intestinal reservoir with takedown of prior loop ileostomy and small-bowel resection in January 2007. 6. Lysis of adhesions for obstruction and bilateral ovarian cystectomy in July 2007. 7. Total abdominal hysterectomy and bilateral salpingo-oophorectomy and abdomino-perineal proctectomy in December 2007. 8. Laparotomy with revision of Ann continent intestinal reservoir access segment and stoma and repair of recurrent incisional hernia in July 2010. OPERATION PERFORMED: Laparotomy with revision of Ann continent intestinal reservoir nipple valve and extensive lysis of adhesions with release of partial small bowel obstruction. DESCRIPTION OF PROCEDURE: The patient was taken to the operating room and under general anesthesia with sequential compression device stockings and Will catheter in place, she was prepped and draped in the usual fashion. She had received preoperative intravenous antibiotics and subcutaneous heparin. Previous midline incision was reopened from midepigastrium to pubis. There were moderate adhesions to the undersurface of the abdominal wall. There were diffuse small bowel adhesions with small bowel knuckled in several areas tightly adherent, with a loop adherent to the gallbladder and liver. The ligament of Treitz was identified. The stomach was normal as was the duodenum. The small bowel was traced from ligament of Treitz down to the Ann pouch low in the pelvis and all adhesions were taken down. A 28-Algerian Will catheter was placed through the stoma in the right lower quadrant into the pouch. The afferent bowel was manually occluded and the pouch distended with 800 mL of saline. Upon removing the catheter, there was no incontinence. The catheter was reintroduced, but required some manipulation and the pouch was decompressed. There was not very much redundancy of the access segment, but there was angulation within the proximal valve segment. A pouch enterotomy was created between stay sutures of 3-0 silk and the nipple valve grasped with [place] clamps. Through a separate pouch enterotomy, the PI-55 stapling device with 4.8 mm connor was introduced through the enterotomy and into the lumen of the valve and then the valve stapled to the anterior pouch wall. Another row of connor was placed 90 degrees away on the valve segment itself. Now the 28-Algerian Will catheter went readily through the stoma and into the apex of the pouch. The small enterotomy was closed with continuous locking 2-0 chromic followed by imbricating 3-0 silk. The primary pouch enterotomy was closed in similar fashion. The pouch lay nicely in the pelvis and the 28 Will went readily in and out of the pouch. It was positioned in the apex and sutured to the skin with two sutures of 2-0 silk. The catheter was flushed and connected to a gravity drainage bag. Antibiotic irrigation was used to protect the abdominal wall during the procedure and a [place] retractor was utilized. The liver and gallbladder was normal to inspection and palpation. Once all the adhesions were taken down, all of the small bowel was normal. The pouch was bluntly dissected free of attachments to the bladder. The bladder itself appeared normal. After ascertaining that hemostasis was secure, the incision was closed in one layer with continuous #0 looped PDS. Additional antibiotic irrigation was utilized and the skin closed with connor. Dry sterile dressings were applied. Final sponge and needle counts were correct. The patient tolerated the procedure well and left the operating room in good condition. Linwood Hendrix M.D. DR: JULIETH JOB#: [id number] CC: RENE
[2018-09-01] VITALS (7 sets, daily range): BP systolic 115–152; BP diastolic 74–105
[2018-09-01] MEDS: Ampicillin/Sulbactam Sod 3 GM in NS 110 ML IV SCH ×4 (00:03→17:41)
[2018-09-01] MEDS: NovoLOG Insulin Flexpen SUBQ SCH ×4 (00:09→17:45)
[2018-09-01] MEDS: LORazepam 1mg tab SL PRN ×2 (00:22→21:41)
[2018-09-01 05:19] LABS: HEMATOCRIT 34.2 % (37.0-47.0); MEAN CORPUSCULAR VOLUME 91 FL (80-99); PLATELET COUNT 168 K/UL (150-450); RED BLOOD COUNT 3.76 M/UL (4.20-5.40); RED CELL DISTRIBUTION WIDTH 10.7 % (11.6-14.8); WHITE BLOOD COUNT 6.8 K/UL (4.8-10.8)
[2018-09-01 05:25] LABS: ANION GAP 7 mmol/L (5-15); BLOOD UREA NITROGEN 18 mg/dL (7-18); CARBON DIOXIDE 25 MMOL/L (21-32); CHLORIDE 108 MMOL/L (98-107); CREATININE 0.9 MG/DL (0.55-1.30); POTASSIUM 3.5 MMOL/L (3.5-5.1); SODIUM 140 MMOL/L (136-145)
[2018-09-01] MEDS: PCA shift volume MISC SCH ×2 (07:14→19:00)
[2018-09-01] MEDS ORDERED: Morphine Sulfate 2mg/ml Inj IVP PRN (08:30)
--- NOTE | 2018-09-01 08:32 | General Progress Note ---
Progress Note Progress Note AVSS Pain controlled with Dilaudid SHIRT CLOSER - removed her Butrans patch which she says has been used only for the past 3 months and is not very effective for her spine pain Chest - decreased expansion Cor - reg rhythm Abdomen mildly distended, soft, incision clean 12 hrs overnight: Urine 650 BCIR ileo 20 WBC 6800 Hgb 12 BMP - wnl Imp. Ileus Atelectasis Plan: NPO, continue TPN mobilize f/u labs Linwood Hendrix MD Sep 01, 2018 08:32
[2018-09-01] MEDS: Topiramate 25mg tab ORAL SCH ×2 (08:41→20:35)
[2018-09-01] MEDS: Methocarbamol 500mg tab ORAL SCH ×2 (08:42→17:41)
[2018-09-01] MEDS: Pantoprazole Inj IVP SCH (08:42)
[2018-09-01] MEDS ORDERED: Rate Change PCA 1 Each MISC PRN (09:00)
[2018-09-01] MEDS ORDERED: Naloxone 0.4mg/ml Inj IVP PRN (09:00)
[2018-09-01] MEDS ORDERED: DiphenhydrAMINE 50mg/ml Inj IVP PRN (09:00)
[2018-09-01] MEDS ORDERED: PCA HYDROmorphone 1mg/ml 30 ML IV PRN (09:00)
[2018-09-01] MEDS ORDERED: NS Irrig 1000ml ONE (16:05)
[2018-09-01] MEDS ORDERED: Tubing IV Secondary IV ONE (16:05)
[2018-09-01] MEDS: Dyna-Hex 2% Top Sol 2oz TOPIC SCH (20:35)
[2018-09-01] MEDS: Iron Sucrose 100 MG in NS 55 ML IV SCH (20:35)
[2018-09-01] MEDS: Potassium Chloride 40 MEQ in D5 1/4NS 1000ml 1,000 ML IV SCH (20:35)
[2018-09-01] MEDS: FAT EMULSION 20% IV SCH (20:37)
[2018-09-01] MEDS: TPN IV SCH (20:37)
[2018-09-02] VITALS: BP 148/102
[2018-09-02] MEDS: NovoLOG Insulin Flexpen SUBQ SCH ×4 (00:06→18:00)
[2018-09-02 04:00] VITALS: BP 124/87
[2018-09-02 04:55] LABS: BASOPHILS % (AUTO) 0.5 % (0.0-2.0); EOSINOPHILS % (AUTO) 1.7 % (0.0-3.0); HEMATOCRIT 33.3 % (37.0-47.0); HEMOGLOBIN 11.8 G/DL (12.0-16.0); LYMPHOCYTES % (AUTO) 13.3 % (20.0-45.0); MEAN CORPUSCULAR VOLUME 91 FL (80-99); MONOCYTES % (AUTO) 9.9 % (1.0-10.0); NEUTROPHILS % (AUTO) 74.6 % (45.0-75.0); PLATELET COUNT 156 K/UL (150-450); RED BLOOD COUNT 3.64 M/UL (4.20-5.40); RED CELL DISTRIBUTION WIDTH 10.6 % (11.6-14.8); WHITE BLOOD COUNT 4.8 K/UL (4.8-10.8)
[2018-09-02] MEDS: Ampicillin/Sulbactam Sod 3 GM in NS 110 ML IV SCH ×5 (05:39→17:43)
[2018-09-02 05:58] LABS: ALANINE AMINOTRANSFERASE 43 U/L (12-78); ALBUMIN 2.6 G/DL (3.4-5.0); ALBUMIN/GLOBULIN RATIO 0.7 (1.0-2.7); ALKALINE PHOSPHATASE 66 U/L (46-116); ANION GAP 6 mmol/L (5-15); ASPARTATE AMINO TRANSFERASE 16 U/L (15-37); BILIRUBIN,TOTAL 0.8 MG/DL (0.2-1.0); BLOOD UREA NITROGEN 15 mg/dL (7-18); CALCIUM 8.2 MG/DL (8.5-10.1); CARBON DIOXIDE 26 MMOL/L (21-32); CHLORIDE 108 MMOL/L (98-107); CREATININE 0.8 MG/DL (0.55-1.30); PHOSPHORUS 1.9 MG/DL (2.5-4.9); POTASSIUM 3.3 MMOL/L (3.5-5.1); SODIUM 140 MMOL/L (136-145)
[2018-09-02] MEDS: PCA shift volume MISC SCH ×2 (07:00→19:00)
[2018-09-02 08:00] VITALS: BP 139/96
[2018-09-02] MEDS: Pantoprazole Inj IVP SCH (08:42)
[2018-09-02] MEDS: Topiramate 25mg tab ORAL SCH ×2 (08:43→20:36)
[2018-09-02] MEDS: Methocarbamol 500mg tab ORAL SCH ×2 (08:43→18:44)
--- NOTE | 2018-09-02 08:57 | General Progress Note ---
Progress Note Progress Note AVSS Ambulated in room briefly yesterday Chest clear Abdomen mild soft distention, incision clean Urine 1200 BCIR ileo 170 WBC 4800 Hgb 11.8 Albumin 2.6 Phosphorus low 1.9 Imp. Ileus Plan; NPO TPN KPhos infusion f/u labs increase activity continue Linwood Louis MD Sep 02, 2018 08:57
[2018-09-02] MEDS ORDERED: DiphenhydrAMINE 50mg/ml Inj IVP PRN (09:00)
[2018-09-02] MEDS ORDERED: Rate Change PCA 1 Each MISC PRN (09:00)
[2018-09-02] MEDS ORDERED: PCA HYDROmorphone 1mg/ml 30 ML IV PRN (09:00)
[2018-09-02] MEDS ORDERED: Naloxone 0.4mg/ml Inj IVP PRN (09:00)
[2018-09-02] MEDS ORDERED: Potassium Phosphate 30 MM in NS 275 ML IV ONE ×2 (10:00→13:00)
[2018-09-02 12:00] VITALS: BP 140/96
[2018-09-02 16:00] VITALS: BP 141/93
[2018-09-02 20:00] VITALS: BP 124/81
[2018-09-02] MEDS: Dyna-Hex 2% Top Sol 2oz TOPIC SCH (20:35)
[2018-09-02] MEDS: Potassium Chloride 40 MEQ in D5 1/4NS 1000ml 1,000 ML IV SCH (20:35)
[2018-09-02] MEDS: Iron Sucrose 100 MG in NS 55 ML IV SCH (20:36)
[2018-09-02] MEDS: TPN IV SCH (20:40)
[2018-09-02] MEDS: FAT EMULSION 20% IV SCH (20:40)
[2018-09-03] VITALS: BP 126/85
[2018-09-03] MEDS: Ampicillin/Sulbactam Sod 3 GM in NS 110 ML IV SCH ×4 (00:09→18:06)
[2018-09-03] MEDS: NovoLOG Insulin Flexpen SUBQ SCH ×4 (00:43→18:00)
[2018-09-03] MEDS: SUMAtriptan 50mg tab ORAL PRN (00:54)
[2018-09-03 04:00] VITALS: BP 115/71
[2018-09-03 05:12] LABS: BASOPHILS % (AUTO) 0.8 % (0.0-2.0); HEMATOCRIT 28.6 % (37.0-47.0); HEMOGLOBIN 10.2 G/DL (12.0-16.0); LYMPHOCYTES % (AUTO) 26.2 % (20.0-45.0); MEAN CORPUSCULAR VOLUME 91 FL (80-99); MONOCYTES % (AUTO) 8.9 % (1.0-10.0); PLATELET COUNT 123 K/UL (150-450); RED BLOOD COUNT 3.15 M/UL (4.20-5.40); RED CELL DISTRIBUTION WIDTH 10.6 % (11.6-14.8); WHITE BLOOD COUNT 4.2 K/UL (4.8-10.8)
[2018-09-03 05:18] LABS: ANION GAP 8 mmol/L (5-15); BLOOD UREA NITROGEN 10 mg/dL (7-18); CARBON DIOXIDE 24 MMOL/L (21-32); CHLORIDE 110 MMOL/L (98-107); CREATININE 0.7 MG/DL (0.55-1.30); PHOSPHORUS 2.4 MG/DL (2.5-4.9); POTASSIUM 3.1 MMOL/L (3.5-5.1); SODIUM 142 MMOL/L (136-145)
[2018-09-03] MEDS: PCA shift volume MISC SCH ×2 (07:00→19:00)
--- NOTE | 2018-09-03 07:39 | 48 Hour Post Anesthesia Eval ---
Post Anesthesia Evaluation Procedure: Exploratory Laparotomy, Revision Ann Continent Ileostomy, Release SBO Date of Evaluation: Sep 01, 2018 Airway: patent Nausea: No Vomiting: No Pain Intensity: 3 Hydration Status: adequate Cardiopulmonary Status: at baseline Mental Status/LOC: patient returned to baseline Post-Anesthesia Complications: 0 Follow-up care needed: N/A - further care as per primary team Blaire Petersen MD Sep 03, 2018 07:39
[2018-09-03 08:00] VITALS: BP 129/83
[2018-09-03] MEDS ORDERED: Rate Change PCA 1 Each MISC PRN (08:00)
--- NOTE | 2018-09-03 08:10 | General Progress Note ---
Progress Note Progress Note AVSS Had headache - relieved by Imitrex po. Abdomen soft, non-distended, mild pedrito-incisional erythema Urine 2049 BCIR ileo 515 WBC down 4300 Hgb 10.2 Platelets 123,000 K 3.1 Phosphorus still low 2.4 Imp. Ileus Plan: continue npo, TPN increase K and P increase ambulation f/u labs d/c Linwood Tang MD Sep 03, 2018 08:09
[2018-09-03] MEDS ORDERED: DiphenhydrAMINE 50mg/ml Inj IVP PRN (08:16)
[2018-09-03] MEDS ORDERED: PCA HYDROmorphone 1mg/ml 30 ML IV PRN (08:16)
[2018-09-03] MEDS ORDERED: Naloxone 0.4mg/ml Inj IVP PRN (08:16)
[2018-09-03] MEDS: Topiramate 25mg tab ORAL SCH ×2 (08:36→20:53)
[2018-09-03] MEDS: Pantoprazole Inj IVP SCH (08:36)
[2018-09-03] MEDS: Methocarbamol 500mg tab ORAL SCH ×3 (08:37→19:05)
[2018-09-03] MEDS: D5 1/2NS w/KCl 40meq 1000ml 1,000 ML IV SCH (08:37)
[2018-09-03] MEDS ORDERED: Potassium Phosphate 20 MM in NS 275 ML IV SCH (10:00)
[2018-09-03 12:00] VITALS: BP 131/84
[2018-09-03 16:00] VITALS: BP 127/81
[2018-09-03] MEDS: LORazepam 1mg tab SL PRN (16:27)
[2018-09-03 20:19] VITALS: BP 149/92
[2018-09-03] MEDS: TPN IV SCH (20:30)
[2018-09-03] MEDS: FAT EMULSION 20% IV SCH (20:30)
[2018-09-03] MEDS: Dyna-Hex 2% Top Sol 2oz TOPIC SCH (20:31)
[2018-09-03] MEDS: Iron Sucrose 100 MG in NS 55 ML IV SCH (20:53)
[2018-09-03] MEDS: Tums 500mg ORAL PRN (22:01)
[2018-09-04] VITALS (7 sets, daily range): BP systolic 126–160; BP diastolic 76–99
[2018-09-04] MEDS: Ampicillin/Sulbactam Sod 3 GM in NS 110 ML IV SCH ×5 (00:05→23:45)
[2018-09-04] MEDS: NovoLOG Insulin Flexpen SUBQ SCH ×5 (00:16→23:45)
[2018-09-04] MEDS: Tums 500mg ORAL PRN ×3 (02:20→20:55)
[2018-09-04 05:40] LABS: BASOPHILS % (AUTO) 0.7 % (0.0-2.0); EOSINOPHILS % (AUTO) 6.5 % (0.0-3.0); HEMATOCRIT 28.7 % (37.0-47.0); HEMOGLOBIN 10.1 G/DL (12.0-16.0); LYMPHOCYTES % (AUTO) 23.5 % (20.0-45.0); MEAN CORPUSCULAR VOLUME 91 FL (80-99); MONOCYTES % (AUTO) 8.8 % (1.0-10.0); NEUTROPHILS % (AUTO) 60.6 % (45.0-75.0); PLATELET COUNT 151 K/UL (150-450); RED BLOOD COUNT 3.17 M/UL (4.20-5.40); RED CELL DISTRIBUTION WIDTH 10.1 % (11.6-14.8); WHITE BLOOD COUNT 4.4 K/UL (4.8-10.8)
[2018-09-04 05:56] LABS: ANION GAP 8 mmol/L (5-15); BLOOD UREA NITROGEN 9 mg/dL (7-18); CALCIUM 8.5 MG/DL (8.5-10.1); CARBON DIOXIDE 24 MMOL/L (21-32); CHLORIDE 109 MMOL/L (98-107); CREATININE 0.7 MG/DL (0.55-1.30); POTASSIUM 3.3 MMOL/L (3.5-5.1); SODIUM 141 MMOL/L (136-145)
[2018-09-04] MEDS: PCA shift volume MISC SCH ×2 (07:18→19:03)
[2018-09-04] MEDS: D5 1/2NS w/KCl 40meq 1000ml 1,000 ML IV SCH (08:23)
[2018-09-04] MEDS: Topiramate 25mg tab ORAL SCH ×2 (08:24→20:40)
[2018-09-04] MEDS: Pantoprazole Inj IVP SCH (08:24)
[2018-09-04] MEDS: Methocarbamol 500mg tab ORAL SCH ×2 (08:34→17:47)
[2018-09-04] MEDS ORDERED: [UNRECOGNIZED DRUG - OTHER] MISC SCH (08:59)
[2018-09-04] MEDS ORDERED: BUPRENORPHINE TRANSDERMAL ORAL SCH (09:00)
--- NOTE | 2018-09-04 10:05 | General Progress Note ---
Progress Note Progress Note Surgery: No acute events. still with epigastric discomfort Abdomen soft, non-distended, mild pedrito-incisional erythema. tender to palpation at superior aspect of incision Urine 3700 BCIR ileo 765 labs stable; k low Imp. Ileus Plan: continue npo, TPN increase electrolytes in tpn increase ambulation f/u labs cont Cheikh Freeman Sep 04, 2018 10:05
[2018-09-04] MEDS ORDERED: NS Irrig 1000ml ONE (14:35)
[2018-09-04] MEDS ORDERED: Tubing IV Secondary IV ONE (14:35)
[2018-09-04] MEDS: LORazepam 1mg tab SL PRN (16:41)
[2018-09-04] MEDS ORDERED: Naloxone 0.4mg/ml Inj IVP PRN (19:28)
[2018-09-04] MEDS ORDERED: Rate Change PCA 1 Each MISC PRN (19:30)
[2018-09-04] MEDS: Dyna-Hex 2% Top Sol 2oz TOPIC SCH (20:01)
[2018-09-04] MEDS: FAT EMULSION 20% IV SCH (20:09)
[2018-09-04] MEDS: TPN IV SCH (20:09)
[2018-09-04] MEDS ORDERED: DiphenhydrAMINE 50mg/ml Inj IVP PRN (20:16)
[2018-09-04] MEDS: Iron Sucrose 100 MG in NS 55 ML IV SCH (20:54)
[2018-09-05] VITALS: BP 140/86
[2018-09-05 04:00] VITALS: BP 135/92
[2018-09-05] MEDS: Ampicillin/Sulbactam Sod 3 GM in NS 110 ML IV SCH ×4 (05:28→23:51)
[2018-09-05] MEDS: NovoLOG Insulin Flexpen SUBQ SCH ×4 (06:00→23:58)
[2018-09-05 06:09] LABS: BASOPHILS % (AUTO) 0.8 % (0.0-2.0); EOSINOPHILS % (AUTO) 5.1 % (0.0-3.0); HEMATOCRIT 32.6 % (37.0-47.0); HEMOGLOBIN 11.4 G/DL (12.0-16.0); LYMPHOCYTES % (AUTO) 26.3 % (20.0-45.0); MEAN CORPUSCULAR VOLUME 91 FL (80-99); MONOCYTES % (AUTO) 9.6 % (1.0-10.0); NEUTROPHILS % (AUTO) 58.2 % (45.0-75.0); PLATELET COUNT 196 K/UL (150-450); RED CELL DISTRIBUTION WIDTH 10.3 % (11.6-14.8); WHITE BLOOD COUNT 5.5 K/UL (4.8-10.8)
[2018-09-05] MEDS: PCA shift volume MISC SCH ×2 (07:07→19:04)
[2018-09-05 07:18] LABS: ALANINE AMINOTRANSFERASE 39 U/L (12-78); ALBUMIN 2.4 G/DL (3.4-5.0); ALBUMIN/GLOBULIN RATIO 0.5 (1.0-2.7); ALKALINE PHOSPHATASE 112 U/L (46-116); AMYLASE 76 U/L (25-115); ANION GAP 12 mmol/L (5-15); ASPARTATE AMINO TRANSFERASE 27 U/L (15-37); BILIRUBIN,TOTAL 0.5 MG/DL (0.2-1.0); BLOOD UREA NITROGEN 10 mg/dL (7-18); CALCIUM 8.9 MG/DL (8.5-10.1); CARBON DIOXIDE 21 MMOL/L (21-32); CHLORIDE 109 MMOL/L (98-107); CREATININE 0.8 MG/DL (0.55-1.30); POTASSIUM 3.7 MMOL/L (3.5-5.1); SODIUM 142 MMOL/L (136-145)
[2018-09-05 08:00] VITALS: BP 151/91
[2018-09-05] MEDS ORDERED: PCA HYDROmorphone 1mg/ml 30 ML IV PRN (08:16)
[2018-09-05] MEDS: D5 1/2NS w/KCl 40meq 1000ml 1,000 ML IV SCH (08:22)
[2018-09-05] MEDS: Pantoprazole Inj IVP SCH (08:22)
[2018-09-05] MEDS: Topiramate 25mg tab ORAL SCH ×2 (08:22→20:37)
[2018-09-05] MEDS: Methocarbamol 500mg tab ORAL SCH ×2 (08:23→17:51)
[2018-09-05 12:00] VITALS: BP 140/99
[2018-09-05] MEDS: Tums 500mg ORAL PRN ×2 (13:44→20:37)
[2018-09-05] MEDS: LORazepam 1mg tab SL PRN ×3 (14:35→22:39)
--- NOTE | 2018-09-05 15:55 | General Progress Note ---
Progress Note Progress Note Surgery: No acute events. still with epigastric discomfort Abdomen soft, non-distended, incision c/d/i; tender at epigastric point tender to palpation at superior aspect of incision Urine good BCIR ileo good labs stable Imp. Ileus Plan: continue npo, TPN increase ambulation f/u labs cont tums; change protonix to prilosec Cheikh Laurent Sep 05, 2018 15:55
[2018-09-05 16:00] VITALS: BP 149/94
[2018-09-05 20:00] VITALS: BP 133/83
[2018-09-05] MEDS: Dyna-Hex 2% Top Sol 2oz TOPIC SCH (20:06)
[2018-09-05] MEDS: FAT EMULSION 20% IV SCH (20:16)
[2018-09-05] MEDS: TPN IV SCH (20:16)
[2018-09-05] MEDS: Iron Sucrose 100 MG in NS 55 ML IV SCH (20:37)
[2018-09-06] VITALS: BP 148/79
[2018-09-06] MEDS: Ampicillin/Sulbactam Sod 3 GM in NS 110 ML IV SCH (05:52)
[2018-09-06] MEDS: NovoLOG Insulin Flexpen SUBQ SCH ×4 (05:56→23:55)
[2018-09-06 06:00] VITALS: BP 147/100
[2018-09-06 06:15] LABS: BASOPHILS % (AUTO) 0.7 % (0.0-2.0); EOSINOPHILS % (AUTO) 3.1 % (0.0-3.0); HEMATOCRIT 33.3 % (37.0-47.0); HEMOGLOBIN 12.1 G/DL (12.0-16.0); LYMPHOCYTES % (AUTO) 16.7 % (20.0-45.0); MEAN CORPUSCULAR VOLUME 90 FL (80-99); MONOCYTES % (AUTO) 7.9 % (1.0-10.0); NEUTROPHILS % (AUTO) 71.7 % (45.0-75.0); PLATELET COUNT 219 K/UL (150-450); RED BLOOD COUNT 3.71 M/UL (4.20-5.40); RED CELL DISTRIBUTION WIDTH 10.7 % (11.6-14.8); WHITE BLOOD COUNT 7.6 K/UL (4.8-10.8)
[2018-09-06 06:18] LABS: ANION GAP 11 mmol/L (5-15); BLOOD UREA NITROGEN 13 mg/dL (7-18); CALCIUM 8.6 MG/DL (8.5-10.1); CARBON DIOXIDE 23 MMOL/L (21-32); CHLORIDE 106 MMOL/L (98-107); CREATININE 0.7 MG/DL (0.55-1.30); POTASSIUM 3.6 MMOL/L (3.5-5.1); SODIUM 140 MMOL/L (136-145)
[2018-09-06] MEDS: PCA shift volume MISC SCH ×2 (07:15→19:15)
[2018-09-06 08:00] VITALS: BP 124/89
[2018-09-06] MEDS: D5 1/2NS w/KCl 40meq 1000ml 1,000 ML IV SCH ×2 (08:32→23:57)
[2018-09-06] MEDS: Topiramate 25mg tab ORAL SCH ×2 (08:32→21:14)
[2018-09-06] MEDS: Tums 500mg ORAL PRN ×3 (08:33→21:14)
[2018-09-06] MEDS: Methocarbamol 500mg tab ORAL SCH ×2 (08:33→18:13)
--- NOTE | 2018-09-06 08:41 | General Progress Note ---
Progress Note Progress Note Tmax 100 x 1. c/o persistent nausea, heartburn, epigastric pain (long-term problem with prior EGDs, etc - had "raw areas" Abdomen soft, flat, mild epigastric tenderness, healing nicely Urine 4250 BCIR ileo 490 WBC 7600 Hgb 12.1 BMP-wnl Imp. Epigastric pain and nausea Plan: Reglan 10mg IV q6h Pepcid IV (protonix not effective) npo continue TPN d/c antibiotics d/c urinary mathias Linwood Hendrix MD Sep 06, 2018 08:41
[2018-09-06] MEDS ORDERED: Naloxone 0.4mg/ml Inj IVP PRN (08:45)
[2018-09-06] MEDS ORDERED: Rate Change PCA 1 Each MISC PRN (08:45)
[2018-09-06] MEDS ORDERED: Phytonadione 10 mg/mL 1ml amp SUBQ SCH (09:00)
[2018-09-06] MEDS: Metoclopramide 10mg/2ml Inj IVP SCH ×3 (09:36→19:56)
[2018-09-06] MEDS ORDERED: Tubing IV Secondary IV ONE (10:25)
[2018-09-06] MEDS ORDERED: NS Irrig 1000ml ONE (10:25)
[2018-09-06 12:00] VITALS: BP 136/96
[2018-09-06 16:00] VITALS: BP 133/75
[2018-09-06 20:00] VITALS: BP 128/82
[2018-09-06] MEDS: LORazepam 1mg tab SL PRN (20:00)
[2018-09-06] MEDS: Dyna-Hex 2% Top Sol 2oz TOPIC SCH (20:06)
[2018-09-06] MEDS: TPN IV SCH (20:14)
[2018-09-06] MEDS: FAT EMULSION 20% IV SCH (20:14)
[2018-09-06] MEDS: Iron Sucrose 100 MG in NS 55 ML IV SCH (21:14)
[2018-09-06 21:21] LABS: APPEARANCE,URINE SLIGHTLY CLOUDY; BILIRUBIN, URINE NEGATIVE (NEGATIVE); GLUCOSE, URINE (UA) NEGATIVE (NEGATIVE); KETONES,URINE NEGATIVE (NEGATIVE); LEUKOCYTE ESTERASE ,URINE NEGATIVE (NEGATIVE); NITRITE,URINE NEGATIVE (NEGATIVE); PH,URINE 8 (4.5-8.0); PROTEIN,URINE NEGATIVE (NEGATIVE); UROBILINOGEN,URINE NORMAL MG/DL (0.0-1.0)
[2018-09-06 21:49] LABS: COLOR,URINE YELLOW
[2018-09-07] VITALS: BP 120/82
[2018-09-07] MEDS: Metoclopramide 10mg/2ml Inj IVP SCH ×4 (02:33→20:07)
[2018-09-07 04:00] VITALS: BP 129/91
[2018-09-07] MEDS: NovoLOG Insulin Flexpen SUBQ SCH ×3 (05:33→17:22)
[2018-09-07] MEDS: Tums 500mg ORAL PRN ×3 (05:35→21:53)
[2018-09-07 06:03] LABS: BASOPHILS % (AUTO) 1.1 % (0.0-2.0); EOSINOPHILS % (AUTO) 3.8 % (0.0-3.0); HEMATOCRIT 33.2 % (37.0-47.0); LYMPHOCYTES % (AUTO) 13.8 % (20.0-45.0); MEAN CORPUSCULAR VOLUME 91 FL (80-99); MONOCYTES % (AUTO) 9.5 % (1.0-10.0); NEUTROPHILS % (AUTO) 71.8 % (45.0-75.0); PLATELET COUNT 184 K/UL (150-450); RED BLOOD COUNT 3.65 M/UL (4.20-5.40); RED CELL DISTRIBUTION WIDTH 10.4 % (11.6-14.8); WHITE BLOOD COUNT 5.3 K/UL (4.8-10.8)
[2018-09-07 06:24] LABS: ANION GAP 10 mmol/L (5-15); BLOOD UREA NITROGEN 12 mg/dL (7-18); CALCIUM 8.9 MG/DL (8.5-10.1); CARBON DIOXIDE 23 MMOL/L (21-32); CHLORIDE 106 MMOL/L (98-107); CREATININE 0.7 MG/DL (0.55-1.30); PHOSPHORUS 3.4 MG/DL (2.5-4.9); POTASSIUM 3.7 MMOL/L (3.5-5.1); SODIUM 139 MMOL/L (136-145)
[2018-09-07] MEDS: PCA shift volume MISC SCH ×2 (07:29→19:00)
[2018-09-07] MEDS: LORazepam 1mg tab SL PRN ×3 (07:40→21:46)
[2018-09-07 08:00] VITALS: BP 151/90
[2018-09-07] MEDS: Methocarbamol 500mg tab ORAL SCH ×2 (08:31→17:17)
[2018-09-07] MEDS: Topiramate 25mg tab ORAL SCH ×2 (08:32→20:08)
[2018-09-07] MEDS ORDERED: Naloxone 0.4mg/ml Inj IVP PRN (08:37)
[2018-09-07] MEDS ORDERED: Rate Change PCA 1 Each MISC PRN (08:45)
[2018-09-07] MEDS ORDERED: PCA HYDROmorphone 1mg/ml 30 ML IV PRN (08:45)
--- NOTE | 2018-09-07 08:45 | General Progress Note ---
Progress Note Progress Note T 100.5 Persistent epigastric abdominal pain and nausea despite Reglan q6h and Zofran q4h. Able to ambulate yesterday Abdomen soft, flat, mild epigastric tenderness near upper pole of incision, healing nicely Urine 2300 BCIR ileo 690 WBC down 5300 Hgb 12 BMP,Mg,P - wnl U/A - no sign of UTI Blood and urine cultures pending Imp. Ileus resolved Epigastric pain and fever ? etiology Plan: STAT CT scan abd+pelvis with oral and IV contrast continue TPN and npo If CT negative, will have GI consult for possible EGD Linwood Hendrix MD Sep 07, 2018 08:45
[2018-09-07 12:00] VITALS: BP 141/84
--- NOTE | 2018-09-07 12:04 | Diagnostic Imaging Report ---
Indication: Abdominal pain. Recent surgery. Technique: CT of the abdomen and pelvis utilizing automated exposure control with intravenous contrast. Venous scanning performed. Axial, sagittal and coronal reformats presented. CT dose: Total DLP 655.32 mGycm; CTDI vol 13.68 mGy Comparison: No prior CT of the abdomen available for comparison Findings: Dependent atelectasis noted in the lung bases. Heart size within normal limits. There is no pericardial effusion. The patient is status post total colectomy with creation of a continent ileostomy in the right lower quadrant. There is a small amount of free intraperitoneal air which is likely related to recent surgical intervention. There are midline abdominal skin connor with some underlying infiltrative changes without subcutaneous fluid collection to suggest associated abscess. There is some free intraperitoneal fluid. In the pelvis there is a rim-enhancing fluid collection that measures approximately 7.5 cm craniocaudal by 4.2 cm AP and approximately 4.9 cm transverse. This sits posterior portions of the reservoir/pouch of the continent ileostomy. Oral contrast is noted within the stomach and noted to traverse all the way to the reservoir/pouch of the continent ileostomy. There is no extravasation of ingested contrast material to suggest perforation. No evidence of mechanical small bowel obstruction. Liver, gallbladder, spleen, adrenal glands and pancreas grossly unremarkable. Kidneys enhance symmetrically. No urinary tract stones or hydronephrosis bilaterally. The bladder is mildly distended but otherwise unremarkable. The uterus and adnexa are not visualized and likely surgically absent. Abdominal aorta normal in caliber with a few scattered atherosclerotic calcifications. Small mesenteric lymph nodes are noted which may be reactive in etiology. The patient is status post posterior instrumented fusion with posterior rods and left-sided pedicle screws spanning from L4 to S1. No acute osseous abnormality identified. IMPRESSION: * Evidence of total colectomy and creation of a continent ileostomy in the right lower quadrant. Recent surgical intervention with midline surgical skin connor. Small amount of free intraperitoneal air and fluid likely related to recent surgical intervention. * Rim-enhancing fluid collection in the pelvis, posterior to the continent ileostomy pouch/reservoir measuring up to 4.9 x 4.2 x 7.5 cm. This may represent a postoperative seroma versus abscess. Clinical correlation recommended. Additional findings as above. Findings discussed with treating physician Dr. Hendrix via telephone conversation approximately 11:[address] scanner at [facility] is accredited by the [employer] and the scans are performed using protocols designed to limit radiation exposure to as low as reasonably achievable to attain images of sufficient resolution adequate for diagnostic evaluation.
--- NOTE | 2018-09-07 14:44 | GI Initial Consult Note ---
History of Present Illness General Date patient seen: Sep 07, 2018 Time patient seen: 14:37 Reason for Hospitalization: Abdominal Pain Referring physician: YOCASTA Reason for Consultation: ABDOMINAL PAIN / NAUSEA Present Illness HPI 48 year old patient whom presented with SBO, now s/p Exploratory Laparotomy, Revision Ann Continent Ileostomy, Release SBO, has complaint of severe abdominal/epigastric pain and constant nausea unrelieved with medical management. Patient reports that the feeling is similar to one she had in the past in which she was diagnosed with gastric ulcers. Pt seen, nauseated and currently NPO + IVFs and on TPN. CT was performed today showed oral contrast is noted within the stomach and noted to traverse all the way to the reservoir/ pouch of the continent ileostomy. There is no extravasation of ingested contrast material to suggest perforation. No evidence of mechanical small bowel obstruction. Home Meds Reported Medications Diphenhydramine HCl (Benadryl) 25 Mg Capsule, 25 MG PO, CAP 08/27/18 Buprenorphine (BUTRANS) 1 Each Patch.tdwk, 1 EACH TD, PATCH 08/27/18 Methocarbamol* (METHOCARBAMOL*) 500 Mg Tablet, 500 MG ORAL QID PRN for For Pain , #20 TAB 0 Refills 08/27/18 Topiramate (TOPAMAX) 25 Mg Cap.sprink, 25 MG ORAL EVERY 12 HOURS, CAP 08/27/18 Med list reviewed/reconciled: Yes Allergies: Coded Allergies: SULFA (SULFONAMIDE ANTIBIOTICS) (Verified Allergy, Mild, HIVES, 07/30/10) Patient History History Provided By: Patient, Medical Record Past Surgical History: other - BCIR Social History: Denies: smoking, alcohol use, drug use, other Review of Systems All Other Systems: negative except mentioned in HPI Physical Exam Vital Signs Date Time Temp Pulse Resp B/P (MAP) Pulse Ox O2 Delivery O2 Flow Rate FiO2 09/03/18 08:00 98.7 83 20 129/83 (98) 100 09/03/18 09:00 Room Air Sp02 EP Interpretation: reviewed, normal Labs Laboratory Tests Test 09/06/18 20:40 09/07/18 05:20 Urine Color Yellow Urine Appearance Slightly cloudy Urine pH 8 (4.5-8.0) Urine Specific Daphne 1.015 (1.005-1.035) Urine Protein Negative (NEGATIVE) Urine Glucose (UA) Negative (NEGATIVE) Urine Ketones Negative (NEGATIVE) Urine Blood Negative (NEGATIVE) Urine Nitrite Negative (NEGATIVE) Urine Bilirubin Negative (NEGATIVE) Urine Urobilinogen Normal MG/DL (0.0-1.0) Urine Leukocyte Esterase Negative (NEGATIVE) Urine RBC 0 /HPF (0 - 2) Urine WBC 0-2 /HPF (0 - 2) Urine Squamous Epithelial Cells Few /LPF (NONE/OCC) Urine Bacteria Occasional /HPF (NONE) White Blood Count 5.3 K/UL (4.8-10.8) Red Blood Count 3.65 M/UL (4.20-5.40) L Hemoglobin 12.0 G/DL (12.0-16.0) Hematocrit 33.2 % (37.0-47.0) L Mean Corpuscular Volume 91 FL (80-99) Mean Corpuscular Hemoglobin 32.9 PG (27.0-31.0) H Mean Corpuscular Hemoglobin Concent 36.2 G/DL (32.0-36.0) H Red Cell Distribution Width 10.4 % (11.6-14.8) L Platelet Count 184 K/UL (150-450) Mean Platelet Volume 9.1 FL (6.5-10.1) Neutrophils (%) (Auto) 71.8 % (45.0-75.0) Lymphocytes (%) (Auto) 13.8 % (20.0-45.0) L Monocytes (%) (Auto) 9.5 % (1.0-10.0) Eosinophils (%) (Auto) 3.8 % (0.0-3.0) H Basophils (%) (Auto) 1.1 % (0.0-2.0) Sodium Level 139 MMOL/L (136-145) Potassium Level 3.7 MMOL/L (3.5-5.1) Chloride Level 106 MMOL/L (98-107) Carbon Dioxide Level 23 MMOL/L (21-32) Anion Gap 10 mmol/L (5-15) Blood Urea Nitrogen 12 mg/dL (7-18) Creatinine 0.7 MG/DL (0.55-1.30) Estimat Glomerular Filtration Rate > 60 mL/min (>60) Glucose Level 145 MG/DL (74-106) H Calcium Level 8.9 MG/DL (8.5-10.1) Phosphorus Level 3.4 MG/DL (2.5-4.9) Magnesium Level 2.0 MG/DL (1.8-2.4) General Appearance: well appearing, no apparent distress, alert Head: normocephalic EENT: PERRL/EOMI, normal ENT inspection Neck: supple Respiratory: normal breath sounds, no respiratory distress, other Cardiovascular: normal rate Gastrointestinal: normal inspection, non tender, soft, normal bowel sounds, non -distended, gt - ileostomy pouch Rectal: deferred Genitourinary: no CVA tenderness Musculoskeletal: normal inspection, back normal Neurologic: normal inspection, alert, oriented x3, responsive Psychiatric: normal inspection, judgement/insight normal, memory normal Skin: normal inspection, normal color, no rash, warm/dry, palpation normal, well hydrated Lymphatic: normal inspection, no adenopathy Current Medications Current Medications Medications (Trade) Dose Ordered Sig/Fern Route PRN Reason Start Time Stop Time Status Last Admin Dose Admin Acetaminophen (Tylenol) 650 mg Q4H PRN ORAL Mild Pain/Temp > 100.5/HENDERSON 08/27/18 20:30 09/26/18 20:29 09/06/18 20:41 Calcium Carbonate (Tums) 500 mg Q4H PRN ORAL ACID REFLUX 09/03/18 22:00 10/03/18 21:59 09/07/18 11:16 Cetirizine HCl (ZyrTEC) 10 mg DAILY ORAL 09/01/18 09:00 10/01/18 08:59 09/07/18 08:31 Chlorhexidine Gluconate (Chantale-Hex 2%) 1 applic DAILY@2000 TOPIC 08/30/18 20:00 09/29/18 19:59 09/06/18 20:06 Dextrose 1,000 ml @ 0 mls/hr Q24H PRN IV PN interrupted or unavailable 08/30/18 20:00 09/29/18 19:59 Dextrose (Dextrose 50%) 25 ml Q30M PRN IV Hypoglycemia 08/31/18 00:00 09/30/18 00:00 Dextrose (Dextrose 50%) 50 ml Q30M PRN IV Hypoglycemia 08/31/18 00:00 09/30/18 00:00 Dextrose/ Electrolytes 1,000 ml @ 30 mls/hr Q24H IV 09/03/18 08:15 10/03/18 08:14 09/06/18 23:57 Diphenhydramine HCl (Benadryl) 25 mg Q6H PRN IVP Itching/Pruritis 09/06/18 08:45 10/06/18 08:44 Famotidine (Pepcid I.v.) 20 mg Q12HR IVP 09/06/18 09:00 10/06/18 08:59 09/07/18 08:32 Fat Emulsion Intravenous 216 ml/Amino Acids/ Electrolytes/ Dextrose 1,920 ml @ 80 mls/hr Q24H IV 09/04/18 20:00 10/04/18 19:59 09/06/18 20:14 Hydromorphone HCl 30 ml @ 0 mls/hr Q24H PRN IV For Pain 09/07/18 08:45 09/09/18 08:44 Hydromorphone HCl (Dilaudid) 2 mg Q4H PRN IVP Moderate Pain (Pain Scale 4-6) 09/07/18 08:45 09/09/18 08:44 Hydromorphone HCl (Dilaudid) 2 mg q3h PRN SUBQ Severe Pain (Pain Scale 7-10) 09/07/18 08:45 09/09/18 08:44 Insulin Aspart (NovoLOG) Q6HR SUBQ 08/31/18 00:00 09/30/18 00:00 09/07/18 11:28 Lansoprazole (Prevacid) 30 mg DAILY ORAL 09/06/18 09:00 10/06/18 08:59 09/07/18 08:31 Lorazepam (Ativan) 1 mg HSPRN PRN SL Insomnia 09/06/18 20:00 09/13/18 19:59 09/06/18 20:00 Lorazepam (Ativan) 1 mg Q4H PRN SL Muscle Spasm 09/06/18 08:45 09/13/18 08:44 09/07/18 13:48 Methocarbamol (Robaxin) 500 mg BID ORAL 09/04/18 09:00 10/04/18 08:59 09/07/18 08:31 Metoclopramide HCl (Reglan) 10 mg Q6H IVP 09/06/18 08:45 10/06/18 08:44 09/07/18 13:48 Miscellaneous Medication (ELECTRO WINNING OPERATOR Rate Change) 1 ea DAILY PRN MISC rate change 09/07/18 08:45 09/09/18 08:44 Miscellaneous Medication (ELECTRO WINNING OPERATOR shift volume) 1 ea Q12HR@0700,1900 MISC 09/07/18 19:00 09/09/18 18:59 Naloxone HCl (Narcan) 0.1 mg Q1M PRN IVP RR<10/min OR SBP<90 mmHg 09/07/18 08:37 09/09/18 08:35 Ondansetron HCl (Zofran) 4 mg Q4H PRN IVP Nausea & Vomiting 08/31/18 18:30 09/30/18 18:29 09/07/18 11:14 Phytonadione (Vitamin K) 10 mg ONCE A WEEK SUBQ 09/06/18 09:00 10/06/18 08:59 09/06/18 09:37 Sumatriptan Succinate (Imitrex) 50 mg DAILY PRN ORAL for migraine pain 09/02/18 22:30 10/02/18 22:29 09/03/18 00:54 Topiramate (Topamax) 50 mg EVERY 12 HOURS ORAL 08/28/18 21:00 09/26/18 23:29 09/07/18 08:32 GI: Plan Problems: (1) Gastric ulcer (2) Nausea (3) Partial small bowel obstruction Plan CT AP reviewed >> Oral contrast is noted within the stomach and noted to traverse all the way to the reservoir/pouch of the continent ileostomy. There is no extravasation of ingested contrast material to suggest perforation. No evidence of mechanical small bowel obstruction. s/p s/p Exploratory Laparotomy, Revision Ann Continent Ileostomy, Release SBO EGD scheduled tomorrow. - maintain NPO + TPN. consider scopolamine patch if patient has persistent nausea - ppi, will consider Carafate post procedure if positive for ulcer will follow with additional recs post procedure Discussed with Dr. Hatfield. Thank you for this patient referral, we will follow. The patient was seen and examined at bedside and all new and available data was reviewed in the patients chart. I agree with the above findings, impression and plan. (Patient seen earlier today. Signature stamp does not reflect patient encounter time.). - MD Liv rBadley,[facility] CenterJose CORRECTIONAL COOK Sep 07, 2018 14:44
[2018-09-07] MEDS ORDERED: NS Irrig 1000ml ONE (15:10)
[2018-09-07 16:00] VITALS: BP 128/86
[2018-09-07] MEDS: TransDerm Scop 1mg/72HR Patch TDERMAL SCH (20:08)
[2018-09-07] MEDS: Dyna-Hex 2% Top Sol 2oz TOPIC SCH (20:08)
[2018-09-07] MEDS: FAT EMULSION 20% IV SCH (20:10)
[2018-09-07] MEDS: TPN IV SCH (20:10)
[2018-09-07 20:14] VITALS: BP 130/87
[2018-09-08] VITALS (10 sets, daily range): BP systolic 116–148; BP diastolic 78–91
[2018-09-08] MEDS: NovoLOG Insulin Flexpen SUBQ SCH ×4 (00:35→18:15)
[2018-09-08] MEDS: LORazepam 1mg tab SL PRN ×3 (00:42→21:04)
[2018-09-08] MEDS: Metoclopramide 10mg/2ml Inj IVP SCH ×4 (02:54→20:02)
[2018-09-08 05:33] LABS: BASOPHILS % (AUTO) 0.9 % (0.0-2.0); HEMATOCRIT 34.6 % (37.0-47.0); HEMOGLOBIN 12.1 G/DL (12.0-16.0); LYMPHOCYTES % (AUTO) 16.7 % (20.0-45.0); MEAN CORPUSCULAR VOLUME 91 FL (80-99); MONOCYTES % (AUTO) 10.1 % (1.0-10.0); NEUTROPHILS % (AUTO) 69.4 % (45.0-75.0); PLATELET COUNT 229 K/UL (150-450); RED BLOOD COUNT 3.82 M/UL (4.20-5.40); RED CELL DISTRIBUTION WIDTH 10.6 % (11.6-14.8); WHITE BLOOD COUNT 6.3 K/UL (4.8-10.8)
[2018-09-08] MEDS: Tums 500mg ORAL PRN (05:44)
[2018-09-08 05:51] LABS: ANION GAP 9 mmol/L (5-15); BLOOD UREA NITROGEN 12 mg/dL (7-18); CALCIUM 8.7 MG/DL (8.5-10.1); CARBON DIOXIDE 25 MMOL/L (21-32); CHLORIDE 104 MMOL/L (98-107); CREATININE 0.7 MG/DL (0.55-1.30); POTASSIUM 3.9 MMOL/L (3.5-5.1); SODIUM 137 MMOL/L (136-145)
--- NOTE | 2018-09-08 06:41 | Anethesia Preoperative Eval ---
Anesthesia Pre-op PMH/ROS General Date of Evaluation: Sep 08, 2018 Time of Evaluation: 06:36 Anesthesiologist: isrrael ASA Score: ASA 3 Mallampati Score Class I : Soft palate, uvula, fauces, pillars visible Class II: Soft palate, uvula, fauces visible Class III: Soft palate, base of uvula visible Class IV: Only hard plate visible Mallampati Classification: Class II Surgeon: rich Diagnosis: small bowel obstruction Surgical Procedure: egd Anesthesia History: none Family History: no anesthesia problems Allergies: Coded Allergies: SULFA (SULFONAMIDE ANTIBIOTICS) (Verified Allergy, Mild, HIVES, 07/30/10) Medications: see eMAR Patient NPO?: Yes NPO Date: Aug 31, 2018 NPO Time: 0000 Past Medical History Gastrointestinal/Genitourinary: Reports: other - colonic inertia, colon mass, cancer, small bowel obstruction, nausea, gastric ulcer HEENT: Reports: other - tonsillectomy Hematology/Immune: Reports: other - raynaud's disease, Musculoskeletal/Integumentary: Reports: OA PSxH Narrative: tonsillectomy, breast lumpectomy Anesthesia Pre-op Phys. Exam Physician Exam Last Vital Signs Date Time Temp Pulse Resp B/P (MAP) Pulse Ox O2 Delivery O2 Flow Rate FiO2 09/08/18 04:10 100.1 103 19 132/86 (101) 98 09/07/18 21:00 Room Air 09/02/18 09:00 3.0 Constitutional: NAD Neurologic: CN 2-12 intact Cardiovascular: RRR Respiratory: CTA Gastrointestinal: S/NT/ND Airway Exam Mallampati Score: Class II MO: full Neck: flexible TMD: 2fb ROM: full Anesthesia Pre-op A/P Labs Hematology Test 09/08/18 05:15 White Blood Count 6.3 K/UL (4.8-10.8) Red Blood Count 3.82 M/UL (4.20-5.40) L Hemoglobin 12.1 G/DL (12.0-16.0) Hematocrit 34.6 % (37.0-47.0) L Mean Corpuscular Volume 91 FL (80-99) Mean Corpuscular Hemoglobin 31.6 PG (27.0-31.0) H Mean Corpuscular Hemoglobin Concent 34.9 G/DL (32.0-36.0) Red Cell Distribution Width 10.6 % (11.6-14.8) L Platelet Count 229 K/UL (150-450) Mean Platelet Volume 9.2 FL (6.5-10.1) Neutrophils (%) (Auto) 69.4 % (45.0-75.0) Lymphocytes (%) (Auto) 16.7 % (20.0-45.0) L Monocytes (%) (Auto) 10.1 % (1.0-10.0) H Eosinophils (%) (Auto) 3.0 % (0.0-3.0) Basophils (%) (Auto) 0.9 % (0.0-2.0) Coagulation Test 09/08/18 05:15 Prothrombin Time 10.2 SEC (9.30-11.50) Prothromb Time International Ratio 1.0 (0.9-1.1) Activated Partial Thromboplast Time 27 SEC (23-33) Chemistry Test 09/08/18 05:15 Sodium Level 137 MMOL/L (136-145) Potassium Level 3.9 MMOL/L (3.5-5.1) Chloride Level 104 MMOL/L (98-107) Carbon Dioxide Level 25 MMOL/L (21-32) Anion Gap 9 mmol/L (5-15) Blood Urea Nitrogen 12 mg/dL (7-18) Creatinine 0.7 MG/DL (0.55-1.30) Estimat Glomerular Filtration Rate > 60 mL/min (>60) Glucose Level 136 MG/DL (74-106) H Calcium Level 8.7 MG/DL (8.5-10.1) Risk Assessment & Plan Assessment: asa3 Plan: mac Status Change Before Surgery: No Pre-Antibiotics Drug: Joanne Parsons MD Sep 08, 2018 06:41
[2018-09-08] MEDS ORDERED: DiphenhydrAMINE 50mg/ml Inj IVP PRN (06:45)
[2018-09-08] MEDS ORDERED: Midazolam 2mg/2ml Inj IVP PRN (06:45)
[2018-09-08] MEDS ORDERED: fentaNYL 100 mcg/2 mL IV PRN (06:45)
[2018-09-08] MEDS ORDERED: Atropine Inj 1mg/10ml Syr IV PRN (06:45)
[2018-09-08] MEDS: PCA shift volume MISC SCH (07:00)
[2018-09-08] MEDS: Topiramate 25mg tab ORAL SCH ×2 (09:00→20:01)
[2018-09-08] MEDS: Methocarbamol 500mg tab ORAL SCH ×2 (09:01→18:01)
[2018-09-08] MEDS: D5 1/2NS w/KCl 40meq 1000ml 1,000 ML IV SCH (09:02)
--- NOTE | 2018-09-08 10:48 | Pre-Procedure Note/Attestation ---
Pre-Procedure Note/Attestation Complete Prior to Procedure Planned Procedure: not applicable Procedure Narrative: egd Indications for Procedure Pre-Operative Diagnosis: GERD Attestation I attest that I discussed the nature of the procedure; its benefits; risks and complications; and alternatives (and the risks and benefits of such alternatives ), prior to the procedure, with the patient (or the patient's legal inside account representative). I attest that, if there was a reasonable possibility of needing a blood transfusion, the patient (or the patient's legal inside account representative) was given the [facility] standardized written summary, pursuant to the [place] Blood Safety Act ([place] Health and Safety Code # 1645, as amended). I attest that I re-evaluated the patient just prior to the surgery and that there has been no change in the patient's H&P, except as documented below: Emil Hatfield MD Sep 08, 2018 10:48
[2018-09-08] MEDS ORDERED: Propofol 200mg/20ml IV ONE (11:00)
[2018-09-08] MEDS ORDERED: Sterile Water Irrig 1000ml IRRIG ONE (11:00)
[2018-09-08] MEDS ORDERED: Lidocaine 1% MPF 10mg/ml 5ml ONE (11:00)
[2018-09-08] MEDS ORDERED: Midazolam 2mg/2ml Inj ONE (11:00)
[2018-09-08] MEDS ORDERED: NS 500ML IVPB ONE (11:30)
[2018-09-08] MEDS ORDERED: NS Irrig 1000ml ONE (11:30)
[2018-09-08] MEDS ORDERED: Rate Change PCA 1 Each MISC PRN (12:30)
[2018-09-08] MEDS ORDERED: Naloxone 0.4mg/ml Inj IVP PRN (12:33)
--- NOTE | 2018-09-08 13:45 | Immediate Post-Op Evaluation ---
Immediate Post-Op Evalulation Immediate Post-Op Evalulation Procedure: egd/bx Date of Evaluation: Sep 08, 2018 Time of Evaluation: 12:00 IV Fluids: 175ml 0.9ns Blood Products: none Estimated Blood Loss: neglgible Blood Pressure Systolic: 120 Blood Pressure Diastolic: 84 Pulse Rate: 113 Respiratory Rate: 18 O2 Sat by Pulse Oximetry: 99 Temperature (Fahrenheit): 99.2 Pain Score (1-10): 0 Nausea: No Vomiting: No Complications none Patient Status: awake, reacts, patent Hydration Status: adequate Drug: Joanne Parsons MD Sep 08, 2018 13:45
--- NOTE | 2018-09-08 13:47 | 48 Hour Post Anesthesia Eval ---
Post Anesthesia Evaluation Procedure: egd/bx Date of Evaluation: Sep 08, 2018 Time of Evaluation: 12:02 Blood Pressure Systolic: 122 0: 86 Pulse Rate: 110 Respiratory Rate: 18 Temperature (Fahrenheit): 99.2 O2 Sat by Pulse Oximetry: 99 Airway: patent Nausea: No Vomiting: No Pain Intensity: 0 Hydration Status: adequate Cardiopulmonary Status: stable Mental Status/LOC: patient returned to baseline Post-Anesthesia Complications: none Follow-up care needed: N/A Joanne Barros MD Sep 08, 2018 13:47
--- NOTE | 2018-09-08 14:30 | Procedure Note ---
DATE OF PROCEDURE: 09/08/2018 SURGEON: Emil Hatfield M.D. PROCEDURE: Upper endoscopy with biopsy. ANESTHESIA: Per Dr. Butler. INSTRUMENT: Olympus adult flexible upper endoscope. INDICATION: Abdominal pain, history of peptic ulcer disease, and anemia. The procedure, risks, benefits, and possible consequences, including hemorrhage, aspiration, perforation and infection, and alternative treatments, were explained to the patient/legal guardian by Dr. Emil Hatfield and the patient/legal guardian understood and accepted these risks. DESCRIPTION OF PROCEDURE: After informed consent was obtained and the patient was adequately sedated, Olympus upper endoscope was advanced from the mouth into the second portion of the duodenum and retroflexion was performed in the stomach. The patient had mild duodenitis, mild diffuse gastritis. Random biopsy from antrum and body was obtained to rule out H. pylori infection. The patient did not have any evidence of hiatal hernia. GE junction was found to be about 40 cm from the . There was a questionable possibility of the paraesophageal hernia, small. No obvious ulcerations or bleeding was seen. SUMMARY OF FINDINGS: 1. Mild duodenitis. 2. Gastritis, status post biopsy. RECOMMENDATIONS: Follow up biopsy results and treat accordingly. I want to thank, Dr. Linwood Hendrix, for this kind referral. Emil Hatfield M.D. DR: FABIOLA JOB#: [id number] CC: Linwood Hendrix M.D.; Fax#: [phone]
--- NOTE | 2018-09-08 15:08 | General Progress Note ---
Progress Note Progress Note T 101.7 yesterday afternoon. c/o persistent nausea and epigastric pain CT scan: no etiology for the pain/nausea; no obstruction; small seroma in pelvis r/o abscess? EGD today: only mild gastritis/duodenitis Abdomen soft, non-distended, mild epigastric tenderness Urine 2300 BCIR ileo 1140 (contrast for CT scan) WBC 6300 Hgb 12 BMP-wnl Urine C&S: E. coli Blood C&S no growth so far Imp. Nausea and epigastric pain ? etiology Fever - ?due to UTI vs. pelvic collection vs. PIC line related Plan: Levaquin IV for E. coli UTI Clear liquid diet d/c basal infusion of STAFFING COORDINATOR and no transdermal patch for now (pre- admission Butrans patch for spine fusion pain not effective) add scopolamine patch maintain TPN and continuous drainage of Ann Pouch repeat blood culture via PICC for any fever spike Linwood Hendrix MD Sep 08, 2018 15:08
[2018-09-08] MEDS: oxyCODONE HCL/Acetaminophen 5/325mg ORAL PRN ×2 (18:10→22:14)
[2018-09-08] MEDS ORDERED: PCA shift volume MISC SCH (19:00)
[2018-09-08] MEDS: TPN IV SCH (20:02)
[2018-09-08] MEDS: FAT EMULSION 20% IV SCH (20:02)
[2018-09-08] MEDS: Dyna-Hex 2% Top Sol 2oz TOPIC SCH (20:02)
[2018-09-09] VITALS: BP 133/86
[2018-09-09] MEDS: NovoLOG Insulin Flexpen SUBQ SCH ×5 (00:20→23:32)
[2018-09-09] MEDS: Metoclopramide 10mg/2ml Inj IVP SCH ×4 (02:49→20:12)
[2018-09-09] MEDS: oxyCODONE HCL/Acetaminophen 5/325mg ORAL PRN (02:50)
[2018-09-09 04:00] VITALS: BP 129/92
[2018-09-09 05:48] LABS: BASOPHILS % (AUTO) 0.5 % (0.0-2.0); EOSINOPHILS % (AUTO) 1.8 % (0.0-3.0); HEMATOCRIT 32.7 % (37.0-47.0); HEMOGLOBIN 11.3 G/DL (12.0-16.0); LYMPHOCYTES % (AUTO) 14.5 % (20.0-45.0); MEAN CORPUSCULAR VOLUME 91 FL (80-99); NEUTROPHILS % (AUTO) 75.3 % (45.0-75.0); PLATELET COUNT 239 K/UL (150-450); RED BLOOD COUNT 3.59 M/UL (4.20-5.40); RED CELL DISTRIBUTION WIDTH 10.6 % (11.6-14.8); WHITE BLOOD COUNT 7.3 K/UL (4.8-10.8)
[2018-09-09 06:06] LABS: ALANINE AMINOTRANSFERASE 45 U/L (12-78); ALBUMIN 2.4 G/DL (3.4-5.0); ALBUMIN/GLOBULIN RATIO 0.5 (1.0-2.7); ALKALINE PHOSPHATASE 159 U/L (46-116); ANION GAP 11 mmol/L (5-15); ASPARTATE AMINO TRANSFERASE 27 U/L (15-37); BILIRUBIN,TOTAL 0.5 MG/DL (0.2-1.0); BLOOD UREA NITROGEN 13 mg/dL (7-18); CALCIUM 8.8 MG/DL (8.5-10.1); CARBON DIOXIDE 23 MMOL/L (21-32); CHLORIDE 104 MMOL/L (98-107); CREATININE 0.7 MG/DL (0.55-1.30); POTASSIUM 3.5 MMOL/L (3.5-5.1); SODIUM 138 MMOL/L (136-145)
[2018-09-09] MEDS: LORazepam 1mg tab SL PRN (07:39)
[2018-09-09 08:00] VITALS: BP 114/76
[2018-09-09] MEDS: D5 1/2NS w/KCl 40meq 1000ml 1,000 ML IV SCH (08:44)
[2018-09-09] MEDS: Topiramate 25mg tab ORAL SCH ×2 (08:44→20:48)
[2018-09-09] MEDS: Methocarbamol 500mg tab ORAL SCH ×2 (08:45→17:36)
--- NOTE | 2018-09-09 09:00 | General Progress Note ---
Progress Note Progress Note Afebrile for 24 hours. Nausea much improved. Had left side abd pain after reaching up for overhead trapeze bar - improved Tolerating clear liquid diet Abdomen soft, non-tender, healing nicely Urine 3050 BCIR ileo 580 WBC 7300 Hgb 11.3 BMP-wnl Albumin still 2.4 Imp. Improving Plan: BCIR low residue diet Continue TPN until tolerating diet well Maintain continuous drainage of Ann continent ileostomy pouch Linwood Hendrix MD Sep 09, 2018 09:00
[2018-09-09 11:31] VITALS: BP 128/96
[2018-09-09] MEDS ORDERED: PCA HYDROmorphone 1mg/ml 30 ML IV PRN ×2 (12:33→12:56)
[2018-09-09] MEDS: Tums 500mg ORAL PRN ×2 (14:23→19:35)
[2018-09-09 15:58] VITALS: BP 109/64
--- NOTE | 2018-09-09 18:14 | General Progress Note ---
Assessment/Plan Assessment/Plan Assessment - SBO, s/p exlap and lysis - Continent ileostomy - duodenitis, per EGD - malnutrition Recommendations - advance diet per surgery - continue TPN - OOB Subjective Allergies: Coded Allergies: SULFA (SULFONAMIDE ANTIBIOTICS) (Verified Allergy, Mild, HIVES, 07/30/10) Subjective On clears some nausea no vomiting some bloat / gas on TPN Objective Last 24 Hour Vital Signs Date Time Temp Pulse Resp B/P (MAP) Pulse Ox O2 Delivery O2 Flow Rate FiO2 09/09/18 15:58 98.3 96 20 109/64 (79) 99 09/09/18 11:31 98.2 102 20 128/96 (107) 100 09/09/18 09:00 Room Air 09/09/18 08:00 98.0 96 20 114/76 (89) 99 09/09/18 04:00 99.8 95 18 129/92 (104) 99 09/09/18 00:00 99.7 68 17 133/86 (102) 100 09/08/18 21:00 Room Air 09/08/18 20:00 99.2 92 17 148/89 (108) 98 09/08/18 19:40 99.2 Intake and Output 09/08/18 09/09/18 18:59 06:59 Intake Total 310 ml 1440 ml Output Total 3230 ml Balance 310 ml -1790 ml Intake Oral 120 ml IV Total 310 ml 1320 ml Output Urine Total 2650 ml Other 580 ml # Voids 6 Laboratory Tests 09/09/18 04:29: White Blood Count 7.3, Red Blood Count 3.59L, Hemoglobin 11.3L, Hematocrit 32.7L , Mean Corpuscular Volume 91, Mean Corpuscular Hemoglobin 31.6H, Mean Corpuscular Hemoglobin Concent 34.6, Red Cell Distribution Width 10.6L, Platelet Count 239, Mean Platelet Volume 10.0, Neutrophils (%) (Auto) 75.3H, Lymphocytes (%) (Auto) 14.5L, Monocytes (%) (Auto) 8.0, Eosinophils (%) (Auto) 1.8, Basophils (%) (Auto) 0.5, Sodium Level 138, Potassium Level 3.5, Chloride Level 104, Carbon Dioxide Level 23, Anion Gap 11, Blood Urea Nitrogen 13, Creatinine 0.7, Estimat Glomerular Filtration Rate > 60, Glucose Level 142H, Calcium Level 8.8, Total Bilirubin 0.5, Aspartate Amino Transf (AST/SGOT) 27, Alanine Aminotransferase (ALT/SGPT) 45, Alkaline Phosphatase 159H, Total Protein 7.3, Albumin 2.4L, Globulin 4.9, Albumin/Globulin Ratio 0.5L Height (Feet): 5 Height (Inches): 5.00 Weight (Pounds): 164 Objective Thin WW NCAT supple CTA RRR abd flat, (+) wound/connor, (+) RLQ ostomy, no edema nonfocal Tori Mayo MD Sep 09, 2018 18:14
[2018-09-09 20:00] VITALS: BP 109/77
[2018-09-09] MEDS: Dyna-Hex 2% Top Sol 2oz TOPIC SCH (20:12)
[2018-09-09] MEDS: FAT EMULSION 20% IV SCH (20:21)
[2018-09-09] MEDS: TPN IV SCH (20:21)
[2018-09-09] MEDS: DiphenhydrAMINE 50mg/ml Inj IVP PRN (22:47)
[2018-09-10] VITALS: BP_SYST 117; BP_DIAS 7; BP_DIAS 70
[2018-09-10] MEDS: Metoclopramide 10mg/2ml Inj IVP SCH ×2 (02:40→08:51)
[2018-09-10 04:00] VITALS: BP 105/66
[2018-09-10] MEDS: DiphenhydrAMINE 50mg/ml Inj IVP PRN (04:49)
[2018-09-10 05:05] LABS: BASOPHILS % (AUTO) 0.4 % (0.0-2.0); EOSINOPHILS % (AUTO) 3.5 % (0.0-3.0); HEMATOCRIT 30.5 % (37.0-47.0); HEMOGLOBIN 10.8 G/DL (12.0-16.0); LYMPHOCYTES % (AUTO) 17.4 % (20.0-45.0); MEAN CORPUSCULAR VOLUME 92 FL (80-99); MONOCYTES % (AUTO) 7.8 % (1.0-10.0); NEUTROPHILS % (AUTO) 70.8 % (45.0-75.0); PLATELET COUNT 240 K/UL (150-450); RED BLOOD COUNT 3.33 M/UL (4.20-5.40); WHITE BLOOD COUNT 7.7 K/UL (4.8-10.8)
[2018-09-10 05:26] LABS: ANION GAP 10 mmol/L (5-15); BLOOD UREA NITROGEN 22 mg/dL (7-18); CALCIUM 8.8 MG/DL (8.5-10.1); CARBON DIOXIDE 23 MMOL/L (21-32); CHLORIDE 103 MMOL/L (98-107); CREATININE 0.8 MG/DL (0.55-1.30); POTASSIUM 3.6 MMOL/L (3.5-5.1); SODIUM 136 MMOL/L (136-145)
[2018-09-10] MEDS: LORazepam 1mg tab SL PRN ×2 (05:47→19:59)
[2018-09-10] MEDS: NovoLOG Insulin Flexpen SUBQ SCH ×3 (05:55→18:00)
[2018-09-10 08:00] VITALS: BP 101/69
[2018-09-10] MEDS: Topiramate 25mg tab ORAL SCH ×2 (08:49→20:40)
[2018-09-10] MEDS: Methocarbamol 500mg tab ORAL SCH ×2 (08:51→18:04)
--- NOTE | 2018-09-10 09:23 | General Progress Note ---
Progress Note Progress Note Continues afebrile. c/o persistent epigastric bloating edelmira. after eating, left side abdominal pain, and nausea relieved by Reglan Ate 30% of BCIR diet Abdomen soft with superior pole of incision in epigastrium prominent but no evidence of fascial disruption or infection; o/w soft, mild left-sided tenderness Urine 2900 BCIR ileo 1160 CBC,BMP satisfactory Imp. Slowly improving Plan: Taper and d/c TPN after today's supply finished change meds to po (levaquin, zofran, pepcid, reglan (will change to prn )) f/u labs maintain continuous drainage of Ann Pouch Linwood Hendrix MD Sep 10, 2018 09:23
[2018-09-10 12:00] VITALS: BP 113/67
[2018-09-10] MEDS: Tums 500mg ORAL PRN ×2 (12:34→16:37)
[2018-09-10] MEDS: Levofloxacin 500mg tab ORAL SCH (12:34)
[2018-09-10 16:00] VITALS: BP 109/76
[2018-09-10] MEDS: TransDerm Scop 1mg/72HR Patch TDERMAL SCH (19:59)
[2018-09-10 20:00] VITALS: BP 129/77
--- NOTE | 2018-09-10 20:03 | General Progress Note ---
Assessment/Plan Assessment/Plan Assessment - SBO, s/p exlap and lysis - Continent ileostomy - duodenitis, per EGD - malnutrition Recommendations - diet per surgery - continue TPN - OOB - follow exam Subjective Allergies: Coded Allergies: SULFA (SULFONAMIDE ANTIBIOTICS) (Verified Allergy, Mild, HIVES, 07/30/10) Subjective c/o bloating (+) loose BM via ostomy on TPN Objective Last 24 Hour Vital Signs Date Time Temp Pulse Resp B/P (MAP) Pulse Ox O2 Delivery O2 Flow Rate FiO2 09/10/18 17:07 98.8 09/10/18 16:00 98.8 91 18 109/76 (87) 100 09/10/18 12:00 99.1 98 19 113/67 (82) 09/10/18 09:00 Room Air 09/10/18 08:00 98.5 98 19 101/69 (80) 09/10/18 04:00 98.7 92 19 105/66 (79) 98 09/10/18 00:00 98.6 90 18 117/70 (86) 99 09/09/18 21:00 Room Air Intake and Output 09/09/18 09/10/18 18:59 06:59 Intake Total 2700 ml 1280 ml Output Total 1890 ml 2170 ml Balance 810 ml -890 ml Intake Oral 1580 ml 400 ml IV Total 1120 ml 880 ml Output Urine Total 1200 ml 1700 ml Other 690 ml 470 ml # Voids 4 Laboratory Tests 09/10/18 04:35: White Blood Count 7.7, Red Blood Count 3.33L, Hemoglobin 10.8L, Hematocrit 30.5L , Mean Corpuscular Volume 92, Mean Corpuscular Hemoglobin 32.6H, Mean Corpuscular Hemoglobin Concent 35.6, Red Cell Distribution Width 11.0L, Platelet Count 240, Mean Platelet Volume 10.0, Neutrophils (%) (Auto) 70.8, Lymphocytes (%) (Auto) 17.4L, Monocytes (%) (Auto) 7.8, Eosinophils (%) (Auto) 3.5H, Basophils (%) (Auto) 0.4, Sodium Level 136, Potassium Level 3.6, Chloride Level 103, Carbon Dioxide Level 23, Anion Gap 10, Blood Urea Nitrogen 22H, Creatinine 0.8, Estimat Glomerular Filtration Rate > 60, Glucose Level 121H, Calcium Level 8.8 Height (Feet): 5 Height (Inches): 5.00 Weight (Pounds): 164 Objective Thin WW NCAT supple CTA RRR abd flat, (+) wound/connor, (+) RLQ ostomy, no edema nonfocal Tori Mayo MD Sep 10, 2018 20:03
[2018-09-10] MEDS: Dyna-Hex 2% Top Sol 2oz TOPIC SCH (20:04)
[2018-09-11] VITALS: BP 117/89
[2018-09-11 04:00] VITALS: BP 112/77
[2018-09-11] MEDS: LORazepam 1mg tab SL PRN (04:24)
[2018-09-11 05:07] LABS: BASOPHILS % (AUTO) 0.4 % (0.0-2.0); EOSINOPHILS % (AUTO) 2.2 % (0.0-3.0); HEMATOCRIT 31.1 % (37.0-47.0); HEMOGLOBIN 11.1 G/DL (12.0-16.0); LYMPHOCYTES % (AUTO) 19.7 % (20.0-45.0); MEAN CORPUSCULAR VOLUME 92 FL (80-99); MONOCYTES % (AUTO) 6.2 % (1.0-10.0); NEUTROPHILS % (AUTO) 71.6 % (45.0-75.0); PLATELET COUNT 268 K/UL (150-450); RED BLOOD COUNT 3.39 M/UL (4.20-5.40); RED CELL DISTRIBUTION WIDTH 10.9 % (11.6-14.8)
[2018-09-11 05:25] LABS: ANION GAP 10 mmol/L (5-15); BLOOD UREA NITROGEN 22 mg/dL (7-18); CALCIUM 9.3 MG/DL (8.5-10.1); CARBON DIOXIDE 24 MMOL/L (21-32); CHLORIDE 103 MMOL/L (98-107); CREATININE 0.9 MG/DL (0.55-1.30); POTASSIUM 3.7 MMOL/L (3.5-5.1); SODIUM 137 MMOL/L (136-145)
[2018-09-11 08:00] VITALS: BP 100/61
--- NOTE | 2018-09-11 08:59 | General Progress Note ---
Progress Note Progress Note T 100.1 Drinking fluids but unable to eat because of epigastric pain and some nausea Abdomen soft, epigastric "bulging", incision clean Urine 2750 BCIR ileo 565 CBC and BMP - satisfactory Imp.Persistent epigastric pain and nausea, increased with eating Low grade fever Plan: STAT CT scan abd+pelvis with contrast Linwood Hendrix MD Sep 11, 2018 08:58
[2018-09-11] MEDS ORDERED: Metoclopramide 10mg/2ml Inj IVP SCH (09:30)
[2018-09-11] MEDS: Methocarbamol 500mg tab ORAL SCH ×2 (09:38→18:00)
[2018-09-11] MEDS: Topiramate 25mg tab ORAL SCH ×2 (09:38→20:30)
[2018-09-11] MEDS ORDERED: NS Irrig 1000ml ONE (09:57)
[2018-09-11 11:45] VITALS: BP 106/69
[2018-09-11] MEDS: Levofloxacin 500mg tab ORAL SCH (13:11)
--- NOTE | 2018-09-11 13:58 | Diagnostic Imaging Report ---
EXAM: CT Abdomen and Pelvis With Intravenous Contrast CLINICAL HISTORY: PAIN TECHNIQUE: Axial computed tomography images of the abdomen and pelvis with intravenous contrast. CTDI is 10.56 mGy and DLP is 483 mGy-cm. One or more of the following dose reduction techniques were used: automated exposure control, adjustment of the mA and/or kV according to patient size, use of iterative reconstruction technique. Oral contrast was administered. COMPARISON: CT abdomen and pelvis dated 09/07/18 FINDINGS: Lung bases: Unremarkable. No mass. No consolidation. ABDOMEN: Liver: Unremarkable. No mass. Gallbladder and bile ducts: Unremarkable. No calcified stones. No ductal dilation. Pancreas: Unremarkable. No mass. No ductal dilation. Spleen: Unremarkable. No splenomegaly. Adrenals: Unremarkable. No mass. Kidneys and ureters: Unremarkable. No solid mass. No hydronephrosis. Stomach and bowel: Status post total colectomy with a right lower quadrant ileostomy. Persistent 7.4 x 6.6 x 5.1 cm loculated fluid collection posterior to the ileostomy pouch, posterior and superior to the urinary bladder. No obstruction. No extravasation of the oral contrast. PELVIS: Appendix: Appendix is surgically absent. Bladder: Unremarkable. No mass. Reproductive: The uterus and ovaries are not visualized and may be surgically absent. ABDOMEN and PELVIS: Intraperitoneal space: Residual foci of free intraperitoneal air, decreased compared to the prior exam, likely related to recent surgery. No significant fluid collection. Bones/joints: No acute fracture. No dislocation. Soft tissues: Unremarkable. Vasculature: Unremarkable. No abdominal aortic aneurysm. Lymph nodes: Unremarkable. No enlarged lymph nodes. IMPRESSION: 1. 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 2. No significant change in a 7.4 x 6.6 x 5.1 cm loculated fluid collection posterior to the ileostomy pouch, which may represent abscess versus seroma. 3. Residual foci of free intraperitoneal air, decreased compared to the prior exam, likely related to recent surgery.
[2018-09-11 16:00] VITALS: BP 115/81
--- NOTE | 2018-09-11 17:33 | General Progress Note ---
Assessment/Plan Assessment/Plan Assessment - SBO, s/p exlap and lysis - fluid collection on CT - Continent ileostomy - duodenitis, per EGD - malnutrition Recommendations - diet per surgery - consider draining fluid collection - defer to surgery - continue TPN - OOB - follow exam Subjective Allergies: Coded Allergies: SULFA (SULFONAMIDE ANTIBIOTICS) (Verified Allergy, Mild, HIVES, 07/30/10) Subjective bloating better today had CT scan (+) loose BM via ostomy on TPN Objective Last 24 Hour Vital Signs Date Time Temp Pulse Resp B/P (MAP) Pulse Ox O2 Delivery O2 Flow Rate FiO2 09/11/18 16:00 97.3 86 18 115/81 (92) 100 09/11/18 14:08 97.1 09/11/18 11:45 97.1 75 18 106/69 (81) 98 09/11/18 09:00 Room Air 09/11/18 08:00 98.2 83 18 100/61 (74) 99 09/11/18 04:00 97.8 95 18 112/77 (89) 98 09/11/18 00:00 97.7 98 18 117/89 (98) 100 09/10/18 21:00 Room Air 09/10/18 20:00 100.1 96 18 129/77 (94) 100 Intake and Output 09/10/18 09/11/18 19:00 07:00 Intake Total 2728 ml 1080 ml Output Total 1235 ml 1125 ml Balance 1493 ml -45 ml Intake Oral 1668 ml 1040 ml IV Total 1040 ml 40 ml Other 20 ml Output Urine Total 950 ml 800 ml Other 285 ml 325 ml # Voids 2 Laboratory Tests 09/11/18 04:50: White Blood Count 8.0, Red Blood Count 3.39L, Hemoglobin 11.1L, Hematocrit 31.1L , Mean Corpuscular Volume 92, Mean Corpuscular Hemoglobin 32.8H, Mean Corpuscular Hemoglobin Concent 35.8, Red Cell Distribution Width 10.9L, Platelet Count 268, Mean Platelet Volume 9.3, Neutrophils (%) (Auto) 71.6, Lymphocytes (%) (Auto) 19.7L, Monocytes (%) (Auto) 6.2, Eosinophils (%) (Auto) 2.2, Basophils (%) (Auto) 0.4, Sodium Level 137, Potassium Level 3.7, Chloride Level 103, Carbon Dioxide Level 24, Anion Gap 10, Blood Urea Nitrogen 22H, Creatinine 0.9, Estimat Glomerular Filtration Rate > 60, Glucose Level 90, Calcium Level 9.3 Height (Feet): 5 Height (Inches): 5.00 Weight (Pounds): 164 Objective Thin WW NCAT supple CTA RRR abd flat, (+) wound/connor, (+) RLQ ostomy, no edema nonfocal Tori Mayo MD Sep 11, 2018 17:33
[2018-09-11 20:00] VITALS: BP 113/75
[2018-09-11] MEDS: Tums 500mg ORAL PRN (20:30)
[2018-09-11] MEDS: Dyna-Hex 2% Top Sol 2oz TOPIC SCH (20:30)
[2018-09-11] MEDS ORDERED: LORazepam 1mg tab SL PRN (21:00)
[2018-09-12] VITALS: BP 111/78
[2018-09-12 04:00] VITALS: BP 108/74
[2018-09-12 05:39] LABS: BASOPHILS % (AUTO) 0.5 % (0.0-2.0); EOSINOPHILS % (AUTO) 2.3 % (0.0-3.0); HEMATOCRIT 29.6 % (37.0-47.0); HEMOGLOBIN 10.2 G/DL (12.0-16.0); MEAN CORPUSCULAR VOLUME 91 FL (80-99); MONOCYTES % (AUTO) 4.9 % (1.0-10.0); NEUTROPHILS % (AUTO) 75.3 % (45.0-75.0); PLATELET COUNT 278 K/UL (150-450); RED BLOOD COUNT 3.24 M/UL (4.20-5.40); RED CELL DISTRIBUTION WIDTH 10.5 % (11.6-14.8)
[2018-09-12 05:47] LABS: ANION GAP 9 mmol/L (5-15); BLOOD UREA NITROGEN 22 mg/dL (7-18); CALCIUM 9.1 MG/DL (8.5-10.1); CARBON DIOXIDE 24 MMOL/L (21-32); CHLORIDE 104 MMOL/L (98-107); CREATININE 0.8 MG/DL (0.55-1.30); POTASSIUM 3.3 MMOL/L (3.5-5.1); SODIUM 137 MMOL/L (136-145)
[2018-09-12] MEDS: Tums 500mg ORAL PRN (05:57)
[2018-09-12] MEDS: Ascorbic Acid 500mg tab ORAL PRN (05:57)
[2018-09-12 08:00] VITALS: BP 112/71
[2018-09-12] MEDS: Methocarbamol 500mg tab ORAL SCH ×2 (08:55→17:45)
[2018-09-12] MEDS: Topiramate 25mg tab ORAL SCH ×2 (08:55→20:30)
--- NOTE | 2018-09-12 10:02 | General Progress Note ---
Progress Note Progress Note Afebrile and feeling better able to eat better although limited amounts. Nausea controlled with Reglan and Zofran. Pain is decreased and controlled with Percocet (abdomen+chronic spine pain) CT scan without new findings Abdomen soft, connor d/c'd and steristrips applied Bilateral pre-tibial pitting edema - states this has occurred at home intermittently Urine 2550 BCIR ileo 1560 (includes contrast) - 360 overnight CBC - stable K3.3 Imp. Improving GI function and decreased pain with better po intake Lower extremity edema bilat. - ?due to low albumin Plan: STAT duplex scan bilat. lower extremity replace KCL po f/u labs start BCIR self-intubations in AM if stable Linwood Hendrix MD Sep 12, 2018 10:02
[2018-09-12 12:00] VITALS: BP 102/67
[2018-09-12] MEDS: Levofloxacin 500mg tab ORAL SCH (13:32)
[2018-09-12 16:00] VITALS: BP 98/62
[2018-09-12 20:00] VITALS: BP 107/71
[2018-09-12] MEDS: Dyna-Hex 2% Top Sol 2oz TOPIC SCH (20:00)
[2018-09-13] VITALS (7 sets, daily range): BP systolic 95–123; BP diastolic 65–86
[2018-09-13] MEDS: Ascorbic Acid 500mg tab ORAL PRN (01:04)
[2018-09-13] MEDS: LORazepam 1mg tab SL PRN (03:34)
[2018-09-13 05:54] LABS: BASOPHILS % (AUTO) 0.5 % (0.0-2.0); EOSINOPHILS % (AUTO) 0.8 % (0.0-3.0); HEMATOCRIT 29.3 % (37.0-47.0); HEMOGLOBIN 10.1 G/DL (12.0-16.0); LYMPHOCYTES % (AUTO) 14.6 % (20.0-45.0); MEAN CORPUSCULAR VOLUME 93 FL (80-99); MONOCYTES % (AUTO) 4.8 % (1.0-10.0); NEUTROPHILS % (AUTO) 79.2 % (45.0-75.0); PLATELET COUNT 280 K/UL (150-450); RED BLOOD COUNT 3.16 M/UL (4.20-5.40); RED CELL DISTRIBUTION WIDTH 10.7 % (11.6-14.8); WHITE BLOOD COUNT 11.1 K/UL (4.8-10.8)
[2018-09-13 05:57] LABS: ANION GAP 10 mmol/L (5-15); BLOOD UREA NITROGEN 22 mg/dL (7-18); CALCIUM 9.4 MG/DL (8.5-10.1); CARBON DIOXIDE 24 MMOL/L (21-32); CHLORIDE 104 MMOL/L (98-107); CREATININE 0.9 MG/DL (0.55-1.30); POTASSIUM 3.6 MMOL/L (3.5-5.1); SODIUM 138 MMOL/L (136-145)
--- NOTE | 2018-09-13 08:24 | General Progress Note ---
Progress Note Progress Note T 100.5 VSS c/o cramping and gas pains Ate better yesterday Abdomen mildly distended, soft Urine 1700 BCIR ileo 1860 C. diff toxin negative WBC up 11,100 BMP-wnl Imp. Fever Pouchitis/bacterial overgrowth enteritis Plan; CT guided drainage of pelvic fluid (increased since first CT scan per Radiologist this AM D/C PIC line Flagyl 500mg po STAT then 250mg po TID Maintain continuous drainage of Ann Pouch Linwood Hendrix MD Sep 13, 2018 08:24
[2018-09-13] MEDS ORDERED: metroNIDAZOLE 500mg tab ORAL SCH (08:30)
[2018-09-13] MEDS: Topiramate 25mg tab ORAL SCH ×2 (08:48→21:04)
[2018-09-13] MEDS: Methocarbamol 500mg tab ORAL SCH ×2 (08:49→17:38)
--- NOTE | 2018-09-13 10:42 | GI Progress Note ---
Assessment/Plan Problems: (1) Gastric ulcer ICD Codes: K25.9 - Gastric ulcer, unspecified as acute or chronic, without hemorrhage or perforation SNOMED: 501010064 (2) Partial small bowel obstruction ICD Codes: K56.600 - Partial intestinal obstruction, unspecified as to cause SNOMED: 346213184 (3) Hypokalemia ICD Codes: E87.6 - Hypokalemia SNOMED: 69517374 (4) Nausea ICD Codes: R11.0 - Nausea SNOMED: 508190453 Status: unchanged Status Narrative Discussed with Dr. Hatfield. Assessment/Plan Assessment - SBO, s/p exlap and lysis - fluid collection on CT - Continent ileostomy - duodenitis, per EGD - malnutrition Recommendations - diet per surgery - consider draining fluid collection - scheduled for today - continue TPN - OOB - follow exam Subjective Gastrointestinal/Abdominal: Reports: no symptoms Objective Last 24 Hour Vital Signs Date Time Temp Pulse Resp B/P (MAP) Pulse Ox O2 Delivery O2 Flow Rate FiO2 09/13/18 09:19 99.2 09/13/18 04:00 99.2 88 17 98/74 (82) 98 09/13/18 00:00 99.9 107 18 123/86 (98) 98 09/12/18 21:00 99.2 09/12/18 21:00 Room Air 09/12/18 20:00 100.5 89 20 107/71 (83) 98 09/12/18 16:00 99.3 85 20 98/62 (74) 98 09/12/18 12:00 98.6 95 19 102/67 (79) 98 Intake and Output 09/12/18 09/13/18 19:00 07:00 Intake Total 944 ml 640 ml Output Total 1600 ml 1960 ml Balance -656 ml -1320 ml Intake Oral 944 ml 640 ml Output Urine Total 700 ml 1000 ml Other 900 ml 960 ml # Voids 3 Laboratory Tests Test 09/13/18 05:00 White Blood Count 11.1 K/UL (4.8-10.8) H Red Blood Count 3.16 M/UL (4.20-5.40) L Hemoglobin 10.1 G/DL (12.0-16.0) L Hematocrit 29.3 % (37.0-47.0) L Mean Corpuscular Volume 93 FL (80-99) Mean Corpuscular Hemoglobin 31.9 PG (27.0-31.0) H Mean Corpuscular Hemoglobin Concent 34.3 G/DL (32.0-36.0) Red Cell Distribution Width 10.7 % (11.6-14.8) L Platelet Count 280 K/UL (150-450) Mean Platelet Volume 8.7 FL (6.5-10.1) Neutrophils (%) (Auto) 79.2 % (45.0-75.0) H Lymphocytes (%) (Auto) 14.6 % (20.0-45.0) L Monocytes (%) (Auto) 4.8 % (1.0-10.0) Eosinophils (%) (Auto) 0.8 % (0.0-3.0) Basophils (%) (Auto) 0.5 % (0.0-2.0) Sodium Level 138 MMOL/L (136-145) Potassium Level 3.6 MMOL/L (3.5-5.1) Chloride Level 104 MMOL/L (98-107) Carbon Dioxide Level 24 MMOL/L (21-32) Anion Gap 10 mmol/L (5-15) Blood Urea Nitrogen 22 mg/dL (7-18) H Creatinine 0.9 MG/DL (0.55-1.30) Estimat Glomerular Filtration Rate > 60 mL/min (>60) Glucose Level 83 MG/DL (74-106) Calcium Level 9.4 MG/DL (8.5-10.1) Magnesium Level 1.9 MG/DL (1.8-2.4) Height (Feet): 5 Height (Inches): 5.00 Weight (Pounds): 164 General Appearance: WD/WN, no apparent distress, alert Cardiovascular: normal rate Respiratory/Chest: normal breath sounds, no respiratory distress Abdominal Exam: normal bowel sounds, non tender, soft Extremities: normal range of motion, non-tender Magalie Peck NP Sep 13, 2018 10:42
[2018-09-13] MEDS: Levofloxacin 500mg tab ORAL SCH (15:23)
[2018-09-13] MEDS: metroNIDAZOLE 250mg tab ORAL SCH ×2 (15:24→21:04)
[2018-09-14] VITALS (22 sets, daily range): BP systolic 98–131; BP diastolic 62–96
[2018-09-14] MEDS: LORazepam 1mg tab SL PRN (03:21)
[2018-09-14] MEDS: metroNIDAZOLE 250mg tab ORAL SCH ×3 (05:14→21:11)
[2018-09-14 05:18] LABS: BASOPHILS % (AUTO) 0.3 % (0.0-2.0); HEMATOCRIT 29.3 % (37.0-47.0); LYMPHOCYTES % (AUTO) 12.4 % (20.0-45.0); MEAN CORPUSCULAR VOLUME 92 FL (80-99); MONOCYTES % (AUTO) 6.4 % (1.0-10.0); NEUTROPHILS % (AUTO) 79.9 % (45.0-75.0); PLATELET COUNT 299 K/UL (150-450); RED BLOOD COUNT 3.18 M/UL (4.20-5.40); RED CELL DISTRIBUTION WIDTH 10.6 % (11.6-14.8); WHITE BLOOD COUNT 9.8 K/UL (4.8-10.8)
[2018-09-14 05:39] LABS: ANION GAP 11 mmol/L (5-15); BLOOD UREA NITROGEN 18 mg/dL (7-18); CALCIUM 9.3 MG/DL (8.5-10.1); CARBON DIOXIDE 24 MMOL/L (21-32); CHLORIDE 103 MMOL/L (98-107); CREATININE 0.8 MG/DL (0.55-1.30); POTASSIUM 3.5 MMOL/L (3.5-5.1); SODIUM 138 MMOL/L (136-145)
[2018-09-14] MEDS ORDERED: D5 1/2NS w/KCl 20mEq 1,000 ML IV SCH (07:00)
--- NOTE | 2018-09-14 07:12 | Anethesia Preoperative Eval ---
Anesthesia Pre-op PMH/ROS General Date of Evaluation: Sep 14, 2018 Anesthesiologist: John Mallampati Score Class I : Soft palate, uvula, fauces, pillars visible Class II: Soft palate, uvula, fauces visible Class III: Soft palate, base of uvula visible Class IV: Only hard plate visible Mallampati Classification: Class II Allergies: Coded Allergies: SULFA (SULFONAMIDE ANTIBIOTICS) (Verified Allergy, Mild, HIVES, 07/30/10) Patient NPO?: Yes NPO Date: Aug 31, 2018 NPO Time: 0000 Anesthesia Pre-op Phys. Exam Physician Exam Last Vital Signs Date Time Temp Pulse Resp B/P (MAP) Pulse Ox O2 Delivery O2 Flow Rate FiO2 09/14/18 04:00 99.6 97 18 98/66 (77) 100 09/13/18 20:41 Room Air 09/08/18 11:53 2 Airway Exam Mallampati Score: Class II Anesthesia Pre-op A/P Labs Hematology Test 09/14/18 05:05 White Blood Count 9.8 K/UL (4.8-10.8) Red Blood Count 3.18 M/UL (4.20-5.40) L Hemoglobin 10.0 G/DL (12.0-16.0) L Hematocrit 29.3 % (37.0-47.0) L Mean Corpuscular Volume 92 FL (80-99) Mean Corpuscular Hemoglobin 31.3 PG (27.0-31.0) H Mean Corpuscular Hemoglobin Concent 34.0 G/DL (32.0-36.0) Red Cell Distribution Width 10.6 % (11.6-14.8) L Platelet Count 299 K/UL (150-450) Mean Platelet Volume 7.4 FL (6.5-10.1) Neutrophils (%) (Auto) 79.9 % (45.0-75.0) H Lymphocytes (%) (Auto) 12.4 % (20.0-45.0) L Monocytes (%) (Auto) 6.4 % (1.0-10.0) Eosinophils (%) (Auto) 1.0 % (0.0-3.0) Basophils (%) (Auto) 0.3 % (0.0-2.0) Chemistry Test 09/14/18 05:05 Sodium Level 138 MMOL/L (136-145) Potassium Level 3.5 MMOL/L (3.5-5.1) Chloride Level 103 MMOL/L (98-107) Carbon Dioxide Level 24 MMOL/L (21-32) Anion Gap 11 mmol/L (5-15) Blood Urea Nitrogen 18 mg/dL (7-18) Creatinine 0.8 MG/DL (0.55-1.30) Estimat Glomerular Filtration Rate > 60 mL/min (>60) Glucose Level 96 MG/DL (74-106) Calcium Level 9.3 MG/DL (8.5-10.1) Blaire Petersen MD Sep 14, 2018 07:12
[2018-09-14] MEDS: Tums 500mg ORAL PRN (08:00)
[2018-09-14] MEDS ORDERED: oxyCODONE HCL/Acetaminophen 5/325mg ORAL PRN (08:05)
--- NOTE | 2018-09-14 08:10 | General Progress Note ---
Progress Note Progress Note T 100.3 overnight and continued abdominal pains but able to eat 75% BCIR low residue diet ABdomen soft Urine 1900 BCIR ileo 1130 (decreased volume now on flagyl po WBC down 9800 BUN 18 Cr 0.8 Imp. Fever ? due to pelvic fluid collection Pouchitis/bacterial overgrowth enteritis Plan: CT guided drainage of pelvic fluid this AM with MAC anesthesia Maintain continuous drainage of Ann pouch continue Levaquin (UTI) and flagyl Linwood Hendrix MD Sep 14, 2018 08:10
[2018-09-14] MEDS: Topiramate 25mg tab ORAL SCH ×2 (08:45→21:10)
[2018-09-14] MEDS: Methocarbamol 500mg tab ORAL SCH ×2 (08:46→17:52)
[2018-09-14] MEDS ORDERED: fentaNYL 100 mcg/2 mL IV ONE (09:44)
[2018-09-14] MEDS ORDERED: Midazolam 2mg/2ml Inj ONE (09:44)
[2018-09-14] MEDS ORDERED: DiphenhydrAMINE 50mg/ml Inj ONE (09:45)
--- NOTE | 2018-09-14 09:54 | Pre-Procedure Note/Attestation ---
Pre-Procedure Note/Attestation Complete Prior to Procedure Planned Procedure: not applicable Procedure Narrative: CT guided aspiration and possible drainage of pelvic fluid collection Indications for Procedure Pre-Operative Diagnosis: pelvic fluid collection, unexplained fevers postop Attestation I attest that I discussed the nature of the procedure; its benefits; risks and complications; and alternatives (and the risks and benefits of such alternatives ), prior to the procedure, with the patient (or the patient's legal retail representative). I attest that, if there was a reasonable possibility of needing a blood transfusion, the patient (or the patient's legal retail representative) was given the [facility] standardized written summary, pursuant to the Tiago Arto[place] Blood Safety Act ([place] Health and Safety Code # 1645, as amended). I attest that I re-evaluated the patient just prior to the surgery and that there has been no change in the patient's H&P, except as documented below: Discussed with pt at [id number] Jose Armando Martell MD Sep 14, 2018 09:54
--- NOTE | 2018-09-14 09:55 | Moderate Sedation - Procedural ---
Moderate Sedation HPI Home Medication Reported Medications Diphenhydramine HCl (Benadryl) 25 Mg Capsule, 25 MG PO, CAP 08/27/18 Buprenorphine (BUTRANS) 1 Each Patch.tdwk, 1 EACH TD, PATCH 08/27/18 Methocarbamol* (METHOCARBAMOL*) 500 Mg Tablet, 500 MG ORAL QID PRN for For Pain , #20 TAB 0 Refills 08/27/18 Topiramate (TOPAMAX) 25 Mg Cap.sprink, 25 MG ORAL EVERY 12 HOURS, CAP 08/27/18 Patient History Allergies: Coded Allergies: SULFA (SULFONAMIDE ANTIBIOTICS) (Verified Allergy, Mild, HIVES, 07/30/10) Pre-Procedural Mod Sedation Date: Sep 14, 2018 Pre-Assessment Time: 09:50 Pre-Sedation Assessment: Eval. Immed. Prior to Sed Airway Assessment (Malampati): III Evaluation Hx of untoward rxns to mod sed: No Procedures/Plans: Radiology Plan for Moderate Sedation: Midazolam, Fentanyl ASA Score: III Informed Consent The nature of the procedure/sedation; its benefits; risks and complications; and alternatives (and the risks and benefits of such alternatives) were discussed with the patient (or their legal rental sales representative), prior to the procedure. All questions were answered to the patient's (or their legal rental sales representative's) satisfaction and the patient (or their legal rental sales representative) gave informed consent to the procedure. I attest that I re-evaluated the patient just prior to the surgery and that there has been no change in the patient's H&P, except as documented below: Post Procedure Assessment Post Procedure TIme: 11:00 Communication: No Apparent Limitation Mental Status: Awake Respiration: Unlabored Skin Condition: WNL Adomen: WNL Nausea: NO Vomiting: NO Jose Armando Martell MD Sep 14, 2018 09:55
[2018-09-14] MEDS ORDERED: Lidocaine 1% Plain 30 ml INJ ONE (10:30)
--- NOTE | 2018-09-14 11:04 | Brief Operative Note ---
Immediate Post Operative Note Operative Note Pre-op Diagnosis: pelvic fluid collection, unexplained fevers postop Procedure: PICC Post-op Diagnosis: same as pre-op Findings: consistent w/pre-op dx studies Surgeon: Nohelia Edgar Anesthesiologist: Dr. Lopez Anesthesia: moderate sedation Specimen: yes - 50 ml old blood-sent to lab Complications: none Condition: stable Fluids: none Implant(s) used?: No Jose Armando Edgar MD Sep 14, 2018 11:03
[2018-09-14] MEDS ORDERED: Midazolam 2mg/2ml Inj IVP SCH (11:45)
[2018-09-14] MEDS ORDERED: DiphenhydrAMINE 50mg/ml Inj IVP SCH (11:45)
[2018-09-14] MEDS ORDERED: fentaNYL 100 mcg/2 mL IV SCH (11:45)
[2018-09-14] MEDS: Levofloxacin 500mg tab ORAL SCH (12:44)
--- NOTE | 2018-09-14 13:06 | GI Progress Note ---
Assessment/Plan Problems: (1) Gastric ulcer ICD Codes: K25.9 - Gastric ulcer, unspecified as acute or chronic, without hemorrhage or perforation SNOMED: 014447595 (2) Partial small bowel obstruction ICD Codes: K56.600 - Partial intestinal obstruction, unspecified as to cause SNOMED: 467938372 (3) Hypokalemia ICD Codes: E87.6 - Hypokalemia SNOMED: 45759917 (4) Nausea ICD Codes: R11.0 - Nausea SNOMED: 221918134 Status: unchanged Status Narrative Discussed with Dr. Hatfield. Assessment/Plan Assessment - SBO, s/p exlap and lysis - fluid collection on CT - Continent ileostomy - duodenitis, per EGD - malnutrition Recommendations - diet per surgery - consider draining fluid collection - scheduled for today - continue TPN - OOB - follow exam Subjective Gastrointestinal/Abdominal: Reports: no symptoms Objective Last 24 Hour Vital Signs Date Time Temp Pulse Resp B/P (MAP) Pulse Ox O2 Delivery O2 Flow Rate FiO2 09/14/18 12:10 98.6 89 19 118/85 (96) 100 09/14/18 11:45 83 20 117/78 98 Nasal Cannula 3 09/14/18 11:30 81 18 113/80 98 Nasal Cannula 3 09/14/18 11:20 80 17 113/77 98 Nasal Cannula 3 09/14/18 11:10 98.6 82 19 116/79 98 Nasal Cannula 3 09/14/18 10:00 99.4 82 22 99 Simple Mask 3.0 90 100 09/14/18 08:00 99.4 80 18 98/62 (74) 100 09/14/18 08:00 99.4 80 18 98/62 (74) 100 09/14/18 07:52 Room Air 09/14/18 04:00 99.6 97 18 98/66 (77) 100 09/13/18 23:55 98.3 88 18 118/74 (89) 100 09/13/18 21:00 99.3 09/13/18 20:41 Room Air 09/13/18 20:00 100.3 88 17 95/65 (75) 98 09/13/18 16:00 99.1 97 16 122/80 (94) 95 09/13/18 15:54 99.1 Intake and Output 09/13/18 09/14/18 19:00 07:00 Intake Total 1416 ml 360 ml Output Total 1990 ml 1020 ml Balance -574 ml -660 ml Intake Oral 1416 ml 360 ml Output Urine Total 1400 ml 500 ml Other 590 ml 520 ml # Voids 3 3 Laboratory Tests Test 09/14/18 05:05 White Blood Count 9.8 K/UL (4.8-10.8) Red Blood Count 3.18 M/UL (4.20-5.40) L Hemoglobin 10.0 G/DL (12.0-16.0) L Hematocrit 29.3 % (37.0-47.0) L Mean Corpuscular Volume 92 FL (80-99) Mean Corpuscular Hemoglobin 31.3 PG (27.0-31.0) H Mean Corpuscular Hemoglobin Concent 34.0 G/DL (32.0-36.0) Red Cell Distribution Width 10.6 % (11.6-14.8) L Platelet Count 299 K/UL (150-450) Mean Platelet Volume 7.4 FL (6.5-10.1) Neutrophils (%) (Auto) 79.9 % (45.0-75.0) H Lymphocytes (%) (Auto) 12.4 % (20.0-45.0) L Monocytes (%) (Auto) 6.4 % (1.0-10.0) Eosinophils (%) (Auto) 1.0 % (0.0-3.0) Basophils (%) (Auto) 0.3 % (0.0-2.0) Sodium Level 138 MMOL/L (136-145) Potassium Level 3.5 MMOL/L (3.5-5.1) Chloride Level 103 MMOL/L (98-107) Carbon Dioxide Level 24 MMOL/L (21-32) Anion Gap 11 mmol/L (5-15) Blood Urea Nitrogen 18 mg/dL (7-18) Creatinine 0.8 MG/DL (0.55-1.30) Estimat Glomerular Filtration Rate > 60 mL/min (>60) Glucose Level 96 MG/DL (74-106) Calcium Level 9.3 MG/DL (8.5-10.1) Height (Feet): 5 Height (Inches): 5.00 Weight (Pounds): 164 General Appearance: WD/WN, no apparent distress, alert Cardiovascular: normal rate Respiratory/Chest: normal breath sounds, no respiratory distress Abdominal Exam: normal bowel sounds, non tender, soft, other - illeostomy Extremities: normal range of motion, non-tender Magalie Peck NP Sep 14, 2018 13:06
--- NOTE | 2018-09-14 16:04 | Diagnostic Imaging Report ---
Indication: Fevers, postoperative pelvic fluid collection demonstrated on recent CT scan Technique: Prior imaging studies reviewed. Informed consent obtained prior to commencement of the procedure. Procedural timeout performed. With the patient prone and under moderate sedation under the supervision of the anesthesiologist, spiral acquisitions obtained through the pelvis. Intended puncture site was marked, sterilely prepped and draped. Local anesthesia with lidocaine, both superficial and deep. Under CT guidance, a 21-gauge Laura needle was advanced into the collection. A 0.018 guidewire was inserted, followed by insertion of a 6 Qatari triaxial introducer assembly. Guidewire, stiffener, dilator removed. Above maneuvers performed under CT guidance Attempts made at aspirating, failed to yield any fluid. A 0.035 guidewire was inserted, followed by introduction of a 8 Qatari Gonzales-Foss drainage catheter. A total of 50 mL of old blood then aspirated. Specimen was sent to the lab for microbial analysis. Follow-up CT scan performed, demonstrating evacuation of most of the previously demonstrated fluid. Due to lack of gross infection of the fluid, the catheter was then removed. The patient tolerated the procedure well, without immediate complication. . Total dose length product 1170 mGycm. CTDIvol(s) 18 x 4, 17 x 2 mGy. Radiation dose was minimized using automated exposure control Comparison: Reference made to CT scan dated 09/11/2018 Findings: Intraoperative imaging as described both, demonstrating satisfactory placement of needle, catheters, guidewires. Final image demonstrates near complete evacuation of the fluid collection contents Impression: CT-guided aspiration and drainage of pelvic fluid collection, yielding 50 mL of old blood, not grossly infected. Given absence of gross pus and successful near complete evacuation of the contents, it was elected to remove the drainage catheter. A specimen has been sent for microbial analysis Procedure and findings discussed at the conclusion of the procedure with Dr. Hendrix The CT scanner at [facility] is accredited by the [employer] and the scans are performed using protocols designed to limit radiation exposure to as low as reasonably achievable to attain images of sufficient resolution adequate for diagnostic evaluation.
[2018-09-15] VITALS: BP 111/70
[2018-09-15 04:00] VITALS: BP 110/66
[2018-09-15 05:14] LABS: BASOPHILS % (AUTO) 0.6 % (0.0-2.0); EOSINOPHILS % (AUTO) 2.1 % (0.0-3.0); HEMATOCRIT 29.8 % (37.0-47.0); HEMOGLOBIN 10.2 G/DL (12.0-16.0); LYMPHOCYTES % (AUTO) 25.5 % (20.0-45.0); MEAN CORPUSCULAR VOLUME 92 FL (80-99); MONOCYTES % (AUTO) 6.8 % (1.0-10.0); PLATELET COUNT 297 K/UL (150-450); RED BLOOD COUNT 3.23 M/UL (4.20-5.40); RED CELL DISTRIBUTION WIDTH 10.7 % (11.6-14.8); WHITE BLOOD COUNT 5.6 K/UL (4.8-10.8)
[2018-09-15 05:27] LABS: ANION GAP 11 mmol/L (5-15); BLOOD UREA NITROGEN 13 mg/dL (7-18); CALCIUM 9.4 MG/DL (8.5-10.1); CARBON DIOXIDE 26 MMOL/L (21-32); CHLORIDE 104 MMOL/L (98-107); CREATININE 0.8 MG/DL (0.55-1.30); POTASSIUM 3.1 MMOL/L (3.5-5.1); SODIUM 140 MMOL/L (136-145)
[2018-09-15] MEDS: Tums 500mg ORAL PRN ×3 (06:03→15:47)
[2018-09-15] MEDS: metroNIDAZOLE 250mg tab ORAL SCH ×3 (06:03→21:10)
--- NOTE | 2018-09-15 07:20 | General Progress Note ---
Progress Note Progress Note Afebrile. doing well although still large volume ileostomy effluent abdomen soft Urine 2850 BCIR ileo 1810 WBC 5600 Hgb 10.2 K3.1 Imp. Improving Plan: RN supervised BCIR self-intubations q3h from am to hs and prn continue strict I&O KCL po Linwood Hendrix MD Sep 15, 2018 07:20
[2018-09-15 08:00] VITALS: BP 109/75
[2018-09-15] MEDS: Topiramate 25mg tab ORAL SCH ×2 (08:33→21:06)
[2018-09-15] MEDS: Methocarbamol 500mg tab ORAL SCH ×2 (08:34→17:09)
--- NOTE | 2018-09-15 10:57 | GI Progress Note ---
Assessment/Plan Problems: (1) Gastric ulcer ICD Codes: K25.9 - Gastric ulcer, unspecified as acute or chronic, without hemorrhage or perforation SNOMED: 643293571 (2) Partial small bowel obstruction ICD Codes: K56.600 - Partial intestinal obstruction, unspecified as to cause SNOMED: 587369486 (3) Hypokalemia ICD Codes: E87.6 - Hypokalemia SNOMED: 53542671 (4) Nausea ICD Codes: R11.0 - Nausea SNOMED: 601730838 Status: stable, unchanged Status Narrative Discussed with Dr. Hatfield. Assessment/Plan Assessment - SBO, s/p exlap and lysis - Continent ileostomy - duodenitis, per EGD - malnutrition - s/p pelvic fluid collection Recommendations - diet per surgery - continue TPN - OOB - ppi - follow exam Subjective Gastrointestinal/Abdominal: Reports: abdominal pain Objective Last 24 Hour Vital Signs Date Time Temp Pulse Resp B/P (MAP) Pulse Ox O2 Delivery O2 Flow Rate FiO2 09/15/18 08:00 98.3 86 20 109/75 (86) 97 09/15/18 07:55 Room Air 09/15/18 04:00 97.7 93 17 110/66 (81) 99 09/15/18 00:00 98.3 88 17 111/70 (84) 100 09/14/18 20:18 Room Air 09/14/18 20:00 98.5 81 18 109/64 (79) 100 09/14/18 16:00 98.9 86 16 105/72 (83) 100 09/14/18 13:10 99.9 92 18 111/65 (80) 99 09/14/18 12:10 98.6 89 19 118/85 (96) 100 09/14/18 12:00 97.6 81 18 111/81 96 Nasal Cannula 3 09/14/18 11:45 83 20 117/78 98 Nasal Cannula 3 09/14/18 11:30 81 18 113/80 98 Nasal Cannula 3 09/14/18 11:20 80 17 113/77 98 Nasal Cannula 3 09/14/18 11:10 98.6 82 19 116/79 98 Nasal Cannula 3 Intake and Output 09/14/18 09/15/18 18:59 06:59 Intake Total 950 ml 1080 ml Output Total 2120 ml 2540 ml Balance -1170 ml -1460 ml Intake Oral 680 ml 1080 ml IV Total 270 ml Output Urine Total 1400 ml 1450 ml Other 720 ml 1090 ml # Voids 5 4 Laboratory Tests Test 09/15/18 04:57 White Blood Count 5.6 K/UL (4.8-10.8) Red Blood Count 3.23 M/UL (4.20-5.40) L Hemoglobin 10.2 G/DL (12.0-16.0) L Hematocrit 29.8 % (37.0-47.0) L Mean Corpuscular Volume 92 FL (80-99) Mean Corpuscular Hemoglobin 31.6 PG (27.0-31.0) H Mean Corpuscular Hemoglobin Concent 34.3 G/DL (32.0-36.0) Red Cell Distribution Width 10.7 % (11.6-14.8) L Platelet Count 297 K/UL (150-450) Mean Platelet Volume 8.4 FL (6.5-10.1) Neutrophils (%) (Auto) 65.0 % (45.0-75.0) Lymphocytes (%) (Auto) 25.5 % (20.0-45.0) Monocytes (%) (Auto) 6.8 % (1.0-10.0) Eosinophils (%) (Auto) 2.1 % (0.0-3.0) Basophils (%) (Auto) 0.6 % (0.0-2.0) Sodium Level 140 MMOL/L (136-145) Potassium Level 3.1 MMOL/L (3.5-5.1) L Chloride Level 104 MMOL/L (98-107) Carbon Dioxide Level 26 MMOL/L (21-32) Anion Gap 11 mmol/L (5-15) Blood Urea Nitrogen 13 mg/dL (7-18) Creatinine 0.8 MG/DL (0.55-1.30) Estimat Glomerular Filtration Rate > 60 mL/min (>60) Glucose Level 115 MG/DL (74-106) H Calcium Level 9.4 MG/DL (8.5-10.1) Microbiology Date/Time Source Procedure Growth Status 09/14/18 11:00 Body Fluid Other Gram Stain - Final Resulted 09/14/18 11:00 Body Fluid Other Body Fluid Culture - Preliminary NO GROWTH AFTER 24 HOURS Resulted 09/14/18 11:00 Body Fluid Other Anaerobic Culture Pending Resulted Height (Feet): 5 Height (Inches): 5.00 Weight (Pounds): 184 General Appearance: WD/WN, no apparent distress, alert Cardiovascular: normal rate Respiratory/Chest: normal breath sounds, no respiratory distress Abdominal Exam: normal bowel sounds, non tender, soft, other - ileostomy Extremities: normal range of motion, non-tender Magalie Peck NP Sep 15, 2018 10:57
[2018-09-15 11:54] VITALS: BP 117/83
[2018-09-15] MEDS: Levofloxacin 500mg tab ORAL SCH (13:46)
[2018-09-15] MEDS: LORazepam 1mg tab SL PRN (13:47)
[2018-09-15 16:00] VITALS: BP 113/75
[2018-09-15 21:30] VITALS: BP 125/80
[2018-09-16] VITALS: BP 111/69
[2018-09-16 04:00] VITALS: BP 114/78
[2018-09-16 05:25] LABS: BASOPHILS % (AUTO) 1.5 % (0.0-2.0); EOSINOPHILS % (AUTO) 4.1 % (0.0-3.0); HEMATOCRIT 31.3 % (37.0-47.0); HEMOGLOBIN 10.5 G/DL (12.0-16.0); LYMPHOCYTES % (AUTO) 45.4 % (20.0-45.0); MEAN CORPUSCULAR VOLUME 92 FL (80-99); MONOCYTES % (AUTO) 7.4 % (1.0-10.0); NEUTROPHILS % (AUTO) 41.7 % (45.0-75.0); PLATELET COUNT 335 K/UL (150-450); RED BLOOD COUNT 3.38 M/UL (4.20-5.40); RED CELL DISTRIBUTION WIDTH 10.6 % (11.6-14.8); WHITE BLOOD COUNT 4.2 K/UL (4.8-10.8)
[2018-09-16 05:43] LABS: ALANINE AMINOTRANSFERASE 31 U/L (12-78); ALBUMIN 2.5 G/DL (3.4-5.0); ALBUMIN/GLOBULIN RATIO 0.5 (1.0-2.7); ALKALINE PHOSPHATASE 166 U/L (46-116); ANION GAP 10 mmol/L (5-15); ASPARTATE AMINO TRANSFERASE 16 U/L (15-37); BILIRUBIN,TOTAL 0.2 MG/DL (0.2-1.0); BLOOD UREA NITROGEN 17 mg/dL (7-18); CALCIUM 9.3 MG/DL (8.5-10.1); CARBON DIOXIDE 25 MMOL/L (21-32); CHLORIDE 105 MMOL/L (98-107); CREATININE 0.8 MG/DL (0.55-1.30); POTASSIUM 3.4 MMOL/L (3.5-5.1); SODIUM 140 MMOL/L (136-145)
[2018-09-16] MEDS: metroNIDAZOLE 250mg tab ORAL SCH ×3 (05:53→21:19)
[2018-09-16 08:00] VITALS: BP 121/71
[2018-09-16] MEDS: SUMAtriptan 50mg tab ORAL PRN (08:27)
[2018-09-16] MEDS ORDERED: LORazepam 1mg tab SL PRN ×2 (08:30→08:31)
--- NOTE | 2018-09-16 08:43 | General Progress Note ---
Progress Note Progress Note Continues afebrile - nearing end of course of Levaquin and Flagyl (both po). BCIR ileo output is decreased and thicker Abdomen soft, well healed. Mild peristomal skin rash - will apply calmoseptine after each intubation Urine 1500 BCIR ileo 1030 WBC 4200 (was low on admission pre-op) Hgb 10.5 K up 3.4 Albumin still low but rising 2.5 Imp. Improved Plan: d/c levaquin and flagyl after today continue q3h intubations am to hs will provide discharge supplies for tomorrow Linwood Hendrix MD Sep 16, 2018 08:43
[2018-09-16] MEDS: Methocarbamol 500mg tab ORAL SCH ×2 (09:40→18:22)
[2018-09-16] MEDS: Topiramate 25mg tab ORAL SCH ×2 (09:40→21:19)
--- NOTE | 2018-09-16 11:31 | GI Progress Note ---
Assessment/Plan Problems: (1) Gastric ulcer ICD Codes: K25.9 - Gastric ulcer, unspecified as acute or chronic, without hemorrhage or perforation SNOMED: 340232882 (2) Partial small bowel obstruction ICD Codes: K56.600 - Partial intestinal obstruction, unspecified as to cause SNOMED: 345818856 (3) Hypokalemia ICD Codes: E87.6 - Hypokalemia SNOMED: 83569679 (4) Nausea ICD Codes: R11.0 - Nausea SNOMED: 542584298 Status: stable Status Narrative Discussed with Dr. Hatfield. Assessment/Plan Assessment - SBO, s/p exlap and lysis - Continent ileostomy - duodenitis, per EGD - malnutrition - s/p pelvic fluid collection Recommendations - diet per surgery - continue TPN - OOB - ppi - follow exam Subjective Subjective abdominal pain improved Objective Last 24 Hour Vital Signs Date Time Temp Pulse Resp B/P (MAP) Pulse Ox O2 Delivery O2 Flow Rate FiO2 09/16/18 09:00 Room Air 09/16/18 08:00 97.5 78 18 121/71 (88) 100 09/16/18 04:00 97.3 85 18 114/78 (90) 99 09/16/18 00:00 98.2 97 18 111/69 (83) 100 09/15/18 21:30 98.4 92 18 125/80 (95) 97 09/15/18 21:00 Room Air 09/15/18 16:00 97.9 100 20 113/75 (88) 96 09/15/18 11:54 97.3 86 20 117/83 (94) 97 Intake and Output 09/15/18 09/16/18 18:59 06:59 Intake Total 1210 ml 520 ml Output Total 1650 ml 880 ml Balance -440 ml -360 ml Intake Oral 1210 ml 520 ml Output Urine Total 900 ml 600 ml Other 750 ml 280 ml # Voids 4 2 Laboratory Tests Test 09/16/18 05:06 White Blood Count 4.2 K/UL (4.8-10.8) L Red Blood Count 3.38 M/UL (4.20-5.40) L Hemoglobin 10.5 G/DL (12.0-16.0) L Hematocrit 31.3 % (37.0-47.0) L Mean Corpuscular Volume 92 FL (80-99) Mean Corpuscular Hemoglobin 31.2 PG (27.0-31.0) H Mean Corpuscular Hemoglobin Concent 33.7 G/DL (32.0-36.0) Red Cell Distribution Width 10.6 % (11.6-14.8) L Platelet Count 335 K/UL (150-450) Mean Platelet Volume 8.6 FL (6.5-10.1) Neutrophils (%) (Auto) 41.7 % (45.0-75.0) L Lymphocytes (%) (Auto) 45.4 % (20.0-45.0) H Monocytes (%) (Auto) 7.4 % (1.0-10.0) Eosinophils (%) (Auto) 4.1 % (0.0-3.0) H Basophils (%) (Auto) 1.5 % (0.0-2.0) Sodium Level 140 MMOL/L (136-145) Potassium Level 3.4 MMOL/L (3.5-5.1) L Chloride Level 105 MMOL/L (98-107) Carbon Dioxide Level 25 MMOL/L (21-32) Anion Gap 10 mmol/L (5-15) Blood Urea Nitrogen 17 mg/dL (7-18) Creatinine 0.8 MG/DL (0.55-1.30) Estimat Glomerular Filtration Rate > 60 mL/min (>60) Glucose Level 92 MG/DL (74-106) Calcium Level 9.3 MG/DL (8.5-10.1) Total Bilirubin 0.2 MG/DL (0.2-1.0) Aspartate Amino Transf (AST/SGOT) 16 U/L (15-37) Alanine Aminotransferase (ALT/SGPT) 31 U/L (12-78) Alkaline Phosphatase 166 U/L (46-116) H Total Protein 7.9 G/DL (6.4-8.2) Albumin 2.5 G/DL (3.4-5.0) L Globulin 5.4 g/dL Albumin/Globulin Ratio 0.5 (1.0-2.7) L Height (Feet): 5 Height (Inches): 5.00 Weight (Pounds): 184 General Appearance: WD/WN, no apparent distress, alert Cardiovascular: normal rate Respiratory/Chest: normal breath sounds, no respiratory distress Abdominal Exam: normal bowel sounds, non tender, soft Extremities: normal range of motion, non-tender Magalie Peck NP Sep 16, 2018 11:31
[2018-09-16 12:00] VITALS: BP 116/84
[2018-09-16] MEDS: Calmoseptine Oint 4oz TOPIC SCH ×4 (12:10→21:20)
[2018-09-16] MEDS: Levofloxacin 500mg tab ORAL SCH (12:50)
--- NOTE | 2018-09-16 14:44 | General Progress Note ---
Progress Note Progress Note Continues to do well with self-intubations of her Ann Pouch, with normal effluent consistency and volume. CT scan aspiration no growth Abdomen soft Plan: Ready for discharge in AM Supplies/limitations/instructions provided/discussed Rx Percocet 10/325 #40; Reglan 10mg ac and hs #60; Lorazepam 1mg #40 prn cramping/spasms f/u with me office 09/22 and call prn Linwood Hendrix MD Sep 16, 2018 14:44
[2018-09-16 16:00] VITALS: BP 113/75
[2018-09-16 20:00] VITALS: BP 146/82
[2018-09-17] VITALS: BP 112/61
[2018-09-17] MEDS: Calmoseptine Oint 4oz TOPIC SCH ×4 (03:00→09:21)
[2018-09-17 04:00] VITALS: BP 116/63
[2018-09-17] MEDS: metroNIDAZOLE 250mg tab ORAL SCH (05:13)
[2018-09-17 05:51] LABS: HEMATOCRIT 37.1 % (37.0-47.0); HEMOGLOBIN 12.4 G/DL (12.0-16.0); MEAN CORPUSCULAR VOLUME 93 FL (80-99); PLATELET COUNT 509 K/UL (150-450); RED BLOOD COUNT 3.98 M/UL (4.20-5.40); RED CELL DISTRIBUTION WIDTH 10.7 % (11.6-14.8); WHITE BLOOD COUNT 4.8 K/UL (4.8-10.8)
[2018-09-17 06:10] LABS: ANION GAP 12 mmol/L (5-15); BLOOD UREA NITROGEN 16 mg/dL (7-18); CARBON DIOXIDE 25 MMOL/L (21-32); CHLORIDE 104 MMOL/L (98-107); CREATININE 0.9 MG/DL (0.55-1.30); POTASSIUM 3.2 MMOL/L (3.5-5.1); SODIUM 141 MMOL/L (136-145)
[2018-09-17 08:00] VITALS: BP 128/78
[2018-09-17] MEDS ORDERED: LORAZEPAM1 MG ORAL (08:21)
[2018-09-17] MEDS ORDERED: METOCLOPRAMIDE H5 M1 ORAL (08:23)
[2018-09-17] MEDS ORDERED: OXYCODONE-ACET1 EAC5 ORAL (08:25)
[2018-09-17] MEDS: Methocarbamol 500mg tab ORAL SCH (09:15)
[2018-09-17] MEDS: Topiramate 25mg tab ORAL SCH (09:16)
--- NOTE | 2018-09-17 10:58 | GI Progress Note ---
Assessment/Plan Problems: (1) Gastric ulcer ICD Codes: K25.9 - Gastric ulcer, unspecified as acute or chronic, without hemorrhage or perforation SNOMED: 138155020 (2) Partial small bowel obstruction ICD Codes: K56.600 - Partial intestinal obstruction, unspecified as to cause SNOMED: 262441482 (3) Hypokalemia ICD Codes: E87.6 - Hypokalemia SNOMED: 91934817 (4) Nausea ICD Codes: R11.0 - Nausea SNOMED: 287951850 Status: stable Status Narrative Discussed with Dr. Hatfield. Assessment/Plan Assessment - SBO, s/p exlap and lysis - Continent ileostomy - duodenitis, per EGD - malnutrition - s/p pelvic fluid collection Recommendations - diet per surgery - continue TPN - OOB - ppi - follow exam - dc plan today Subjective Gastrointestinal/Abdominal: Reports: no symptoms Subjective abdominal pain improved Objective Last 24 Hour Vital Signs Date Time Temp Pulse Resp B/P (MAP) Pulse Ox O2 Delivery O2 Flow Rate FiO2 09/17/18 09:00 Room Air 09/17/18 08:00 97.0 98 20 128/78 (95) 98 09/17/18 04:00 97.7 45 19 116/63 (80) 100 09/17/18 00:00 98.4 92 19 112/61 (78) 100 09/16/18 21:00 Room Air 09/16/18 20:00 97.8 54 19 146/82 (103) 100 09/16/18 17:17 97.9 09/16/18 16:00 97.9 76 19 113/75 (88) 100 09/16/18 12:00 97.9 80 19 116/84 (95) 100 Intake and Output 09/16/18 09/17/18 19:00 07:00 Intake Total 1000 ml 708 ml Output Total 1825 ml 1375 ml Balance -825 ml -667 ml Intake Oral 1000 ml 708 ml Output Urine Total 1200 ml 1000 ml Other 625 ml 375 ml # Voids 4 4 Laboratory Tests Test 09/17/18 05:30 White Blood Count 4.8 K/UL (4.8-10.8) Red Blood Count 3.98 M/UL (4.20-5.40) L Hemoglobin 12.4 G/DL (12.0-16.0) Hematocrit 37.1 % (37.0-47.0) Mean Corpuscular Volume 93 FL (80-99) Mean Corpuscular Hemoglobin 31.2 PG (27.0-31.0) H Mean Corpuscular Hemoglobin Concent 33.5 G/DL (32.0-36.0) Red Cell Distribution Width 10.7 % (11.6-14.8) L Platelet Count 509 K/UL (150-450) #H Mean Platelet Volume 8.1 FL (6.5-10.1) Neutrophils (%) (Auto) % (45.0-75.0) Lymphocytes (%) (Auto) % (20.0-45.0) Monocytes (%) (Auto) % (1.0-10.0) Eosinophils (%) (Auto) % (0.0-3.0) Basophils (%) (Auto) % (0.0-2.0) Neutrophils % (Manual) Pending Lymphocytes % (Manual) Pending Platelet Estimate Pending Platelet Morphology Pending Sodium Level 141 MMOL/L (136-145) Potassium Level 3.2 MMOL/L (3.5-5.1) L Chloride Level 104 MMOL/L (98-107) Carbon Dioxide Level 25 MMOL/L (21-32) Anion Gap 12 mmol/L (5-15) Blood Urea Nitrogen 16 mg/dL (7-18) Creatinine 0.9 MG/DL (0.55-1.30) Estimat Glomerular Filtration Rate > 60 mL/min (>60) Glucose Level 87 MG/DL (74-106) Calcium Level 10.0 MG/DL (8.5-10.1) Height (Feet): 5 Height (Inches): 5.00 Weight (Pounds): 184 General Appearance: WD/WN, no apparent distress, alert Cardiovascular: normal rate Respiratory/Chest: normal breath sounds, no respiratory distress Abdominal Exam: normal bowel sounds, non tender, soft Extremities: normal range of motion, non-tender Magalie Peck [employer] Sep 17, 2018 10:58
--- NOTE | 2018-09-22 07:22 | Discharge Summary ---
Discharge Summary Hospital Course Date of Admission Aug 27, 2018 at 19:18 Date of Discharge Sep 17, 2018 at 10:15 Admitting Diagnosis small bowel obstructaion HPI Africa Bravo is a 48 year old female who was admitted on Aug 27, 2018 at 19:18 for Small Bowel Obstruction Consultations Dr. Hatfield Procedures s/p 08/30/[address] Ruma Ann continent ileostomy pouch endoscopy s/p 09/08/[address] Hatfield flexible upper endoscopy Hospital Course FINAL DIAGNOSES 1. Persistent partial small bowel obstruction. 2. Malfunctioning Ann continent intestinal reservoir. 3. History of colonic inertia. 4. History of rheumatoid arthritis and degenerative osteoarthritis with multiple bulging disks, status post spinal fusion 2013. 5. STATUS POST MULTIPLE ABDOMINAL OPERATIONS: 5.1. section x4. 5.2. Total abdominal colectomy with ileorectostomy June 2006. 5.3. Low anterior resection of anastomotic stricture with re-anastomosis and diverting loop ileostomy July 2006. 5.4. Repair of ventral incisional hernia in September 2006, (these operations were done in [place]). 5.5. Ann continent intestinal reservoir with takedown of prior loop ileostomy and small bowel resection January 2007. 5.6. Extensive lysis of adhesions for obstruction and bilateral ovarian cystectomy July 2007. 5.7. Total abdominal hysterectomy and bilateral salpingo-oophorectomy and abdomino-perineal proctectomy December 2007. 5.8. Laparotomy with revision of Ann continent intestinal reservoir access segment and stoma and repair of recurrent incisional hernia July 2010 Discharge Medications Continued Medications: Diphenhydramine HCl (Benadryl) 25 Mg Capsule 25 MG PO, CAP (This prescription has been renewed) Lorazepam* (Lorazepam*) 1 Mg Tablet 1 MG ORAL Q6HR PRN for Abdominal cramps, #40 TAB (This prescription has been renewed) Methocarbamol* (Methocarbamol*) 500 Mg Tablet 500 MG ORAL QID PRN for For Pain, #20 TAB 0 Refills (This prescription has been renewed) Metoclopramide Hcl* (Metoclopramide Hcl*) 5 Mg Tablet 10 MG ORAL AC+HS PRN for Abdominal cramps, #60 TAB (This prescription has been renewed) Oxycodone Hcl/Acetaminophen 10-325* (Oxycodone-Acetaminophen 10-325*) 1 Each Tablet 1 TAB ORAL Q4H PRN for For Pain, #40 TAB (This prescription has been renewed) Topiramate (Topamax) 25 Mg Cap.sprink 25 MG ORAL EVERY 12 HOURS, CAP (This prescription has been renewed) Discharge Condition Upon Discharge: stable Discharge Disposition Patient was discharged to Home (01) Discharge Instructions Discharge Instructions Special Instructions I have been assigned to complete a D/C Summary on this account. I was not involved in the patient management Claudia Arias NP Sep 22, 2018 07:22
--- NOTE | 2018-09-23 07:21 | Endoscopy Procedure Note ---
Endoscopy Procedure Note General Indication for Procedure: abd pain Procedures Performed: EGD Operative Findings/Diagnosis: gastrtiis Specimen: yes Pt Tolerated Procedure Well: Yes Estimated Blood Loss: none Anesthesia Anesthesiologist: isrrael Anesthesia: MAC Inserted Devices Implant(s) used?: No GI Core Measures 50 yrs or older w/o bx or poly: Not Applicable 10yrs. F/U not recommended: Not Applicable Emil Hatfield MD Sep 23, 2018 07:21
== END 2018-09-17 10:15 | disposition home or self-care (01) | DRG 336 ==
LOC: EMR 19:17 → 3E 19:18 → EDBEDREQ 19:19 → UNDODISIN 09-17 10:15
PROC: 0DJD8ZZ Inspection of Lower Intestinal Tract, Via Natural or Artificial Opening Endoscopic (ICD-10-PCS; principal; 2018-08-30 13:44)
PROC: 02HV33Z Insertion of Infusion Device into Superior Vena Cava, Percutaneous Approach (ICD-10-PCS; principal; 2018-08-30 13:44)
PROC: B518ZZA Fluoroscopy of Superior Vena Cava, Guidance (ICD-10-PCS; principal; 2018-08-30 13:44)
PROC: 0DN80ZZ Release Small Intestine, Open Approach (ICD-10-PCS; 2018-08-31)
PROC: 0WQFXZ2 Repair Abdominal Wall, Stoma, External Approach (ICD-10-PCS; 2018-08-31)
PROC: 0DB78ZX Excision of Stomach, Pylorus, Via Natural or Artificial Opening Endoscopic, Diagnostic (ICD-10-PCS; 2018-09-08)
PROC: 0W9G3ZX Drainage of Peritoneal Cavity, Percutaneous Approach, Diagnostic (ICD-10-PCS; 2018-09-14)
DX: K56.51 Intestinal adhesions [bands], with partial obstruction (principal); K94.13 Enterostomy malfunction; E46 Unspecified protein-calorie malnutrition; J98.11 Atelectasis; K91.850 Pouchitis; K56.7 Ileus, unspecified; E87.6 Hypokalemia; Z68.30 Body mass index [BMI] 30.0-30.9, adult; K29.80 Duodenitis without bleeding; K29.70 Gastritis, unspecified, without bleeding; M06.9 Rheumatoid arthritis, unspecified; G89.4 Chronic pain syndrome; K52.89 Other specified noninfective gastroenteritis and colitis
CPT/HCPCS: 36415; 36569; 74176; 74177; 74270; 75989; 76937; 80048; 80053; 81001; 81003; 82150; 82607; 82728; 82746; 82962; 83540; 83550; 83690; 83735; 84100; 85007; 85025; 85610; 85730; 86850; 86870; 86900; 86901; 87040; 87070; 87075; 87086; 87181; 87205; 87324; 93005; 93970; 94003; 94150; 96361; 96374; 96375; 99285; J1815; J2250; J2405; J2710; J2765; J8499